=== PATIENT | female | born 1945 | race Caucasian/White ===

== ENCOUNTER 2020-09-07 21:35 | Inpatient (IN) ==
--- OUTSIDE RECORDS SUMMARY | 2020-09-07 21:38 | External Medical Summary | Continuity of Care Document ---
:1945 Author Name Fidencio Rivero, Provider Address Unavailable Unavailable , Care Team Providers Name Role Phone Isabella Craft PA-C Unavailable [email or web address], [email or web address] Unavailable Unavailable Unavailable Unavailable Unavailable Problems Arthritis (716.90) (M19.90) Depression with anxiety (300.4) (F41.8) Allergies and Adverse Reactions Penicillins (Allergy) Reaction: Hives Medications Ibuprofen CAPS Refills: 0 Procedures History of Knee Arthroplasty Status: Com pleted History of hysterectomy Status: Complete d History of kidney surgery Status: Comple nicole Immunizations Immunizations not documented Family History Mother Family history of lymphoma (V16.7) (Z80.7) Status: Active Family history of hypertension (V17.49) (Z82.49) Status: Act joe Family history of leukemia (V16.6) (Z80.6) Status: Active Family history of diabetes mellitus (V18.0) (Z83.3) Status: Active Father Family history of myocardial infarction (V17.3) (Z82.49) Sta tus: Active Brother Family history of malignant neoplasm of esophagus (V16 .0) (Z80.0) Status: Active Social History - Smoking Status Never smoked tobacco Interventions Discussion/SummaryPatient with multiple inflamed SK's on chest. Discussed treating lesions with cryotherapy. Risks of pigmentation change and scar were reviewed and verbal consent obtained. Total of 20 lesions treated. She may return in 4 weeks for additional treatment. Plan of Treatment Planned Observations Planned Goals not documented Results No Known Results Results not documented Encounters Appointment; Isabella Craft PA-C 29-Jun-2018 11:45 Encounter Diagnosis: Problem not documented
[2020-09-07] MEDS ORDERED: ONDANSETRON 4 MG OD TAB PO STA (21:51)
[2020-09-07] MEDS ORDERED: MoRPHine SULFATE 10 MG/ML CARP/VIAL IM STA (21:51)
--- NOTE | 2020-09-07 21:56 | Emergency Department Note ---
History of Present Illness General Chief complaint: Fall Stated complaint: FALL, LOWER BACK PAIN Time Seen by Provider: 09/07/20 21:44 Source: patient Mode of arrival: EMS History of Present Illness Provider complaint: Lower back pain Onset (ago): hour(s) Location: back, left and right Radiation: non-radiation Pain Consistency: + constant Maximum Pain Intensity: 7 Quality: + sharp Exacerbated By: + movement Associated symptoms: no chest pain, no fever/chills, no headaches, no nausea/vomiting, no shortness of breath and no weakness This is a 75-year-old female who presents with low back pain starting at 7:30 PM after falling. The patient was carrying water jugs into the house when she tripped on her rug causing her to pitch forward and landed on a week or so for. The patient states that when she did this she arched her back and thought she heard something snap. She has pain to the lower back bilaterally without radiation down her legs or into her abdomen. She describes it as sharp. It is worse when she moves. She rates it a 7 out of 10 in severity. She denies hitting her head or injuring any other part of her body. She has no headache, neck pain, chest pain, hip pain or extremity pain. She does state that she had knee replacements and so had difficulty getting up and had to call EMS. She denies any recent illness and states that she has had no fever, shortness of breath, cough or cold symptoms, abdominal pain, vomiting, diarrhea or urinary symptoms. She denies numbness or weakness to her legs or any fecal urinary incontinence. She lives at home with her handicapped son. Home Medications Medication Instructions Recorded Confirmed Type IBUPROFEN 1 - 2 cap PO DIRECTED PRN #0 06/02/16 History OMEPRAZOLE (Prilosec) 20 mg PO QAM #0 cap 06/02/16 History Allergies Allergy/AdvReac Type Severity Reaction Status Date / Time Penicillins Allergy Intermediate HIVES Verified 07/30/16 13:29 tramadol Allergy Unknown DIZZY Verified 07/30/16 13:29 Past Med/Surg History Medical History Lumbar disc disease Social History Smoking Status: Never smoker Feels Safe at Home: Yes Review of Systems See HPI for pertinent positives & negatives. and A total of 10 systems reviewed and were otherwise negative Physical Exam Vital Signs Vital Signs - 24 hr 09/07/20 21:43 09/07/20 22:52 Temperature 37.3 C Temperature Source Oral Pulse Rate 73 Pulse Rate [Finger] 70 Respiratory Rate 18 18 Blood Pressure 155/62 H Blood Pressure [Right Arm] 135/66 Blood Pressure Mean 93 Blood Pressure Mean [Right Arm] 89 Pulse Oximetry 94 93 Oxygen Delivery Method Room Air Room Air Sepsis Recent Fever Within 48 Hours No Sepsis New/Unexplained Change in Mental Status N/A Sepsis Action Taken by Nursing No Action Required Constitutional: Vital signs reviewed. Eyes: Pupils are equal round reactive to light. Conjunctiva are noninjected. ENT: Pharynx is clear without erythema or exudate. Mucous membranes are moist. Neck supple without meningeal signs. Respiratory: Clear to auscultation bilaterally. Breath sounds are equal bilater ally. Cardiovascular: Regular rate and rhythm. No rubs or gallops. GI: Soft, nondistended and nontender. Bowel sounds are present. Musculoskeletal: Mild tenderness to the mid lumbar spine without step-off or deformity. No thoracic spine tenderness. No hip tenderness. Distal pulses are intact. Integumentary: No cyanosis. or jaundice. Neurological: The patient is awake and alert. No focal deficits. Motor and sensation are intact throughout the lower extremities. Negative straight leg raise bilaterally. Psychiatric: Normal affect. Not anxious appearing. Course Administered Medications Discontinued Medications Morphine Sulfate (Morphine Sulfate 10 Mg/Ml Carp/Vial) 6 mg IM NOW STA Stop: 09/07/20 21:52 Last Admin: 09/07/20 21:55 Dose: 6 mg Documented by: [id number] Ondansetron HCl (Ondansetron 4 Mg Od Tab) 4 mg PO NOW STA Stop: 09/07/20 21:52 Last Admin: 09/07/20 21:55 Dose: 4 mg Documented by: [id number] Medical Decision Making Differential Diagnosis Strain, compression fracture, spinal stenosis, lumbar disc disease, contusion Medical Records Attestation: I reviewed the patient's medical records. I did perform a limited focused review of portions of the patient's old chart on the electronic medical record. The patient has had no recent pertinent visits to this hospital. Home Medications Current Medication List: was personally reviewed by me Laboratory Data Attestation: I reviewed the patient's lab results. X-ray lumbar spine per my interpretation shows no evidence of fracture or dislocation. She has diffuse disc space narrowing. There is spondylolisthesis of L4 on L5. MDM Narrative I did evaluate the patient as noted above. The patient is presenting with low back pain after a mechanical fall. She is neurovascular intact. I did treat her with IM morphine and ODT Zofran. I did order and personally reviewed the images of the patient's Lumbar spine x-rays as described above. She has diffuse to space narrowing and spondylolisthesis of L4 on L5. I did reassess the patient. I did discuss the test results with the patient. She does feel better and wishes to go home. She was given an ambulatory trial. Unfortunately she wa s unable to stand on her own. She will therefore be hospitalized for further care and evaluation. IV access was established. I did order blood work on her as well. I did order a rapid Covid test. I did discuss case with the hospitalist and telephonic case manager. Impression & Plan Intractable low back pain, Fall, Ambulatory dysfunction Discharge Plan Visit Data Chief Complaint: Fall Stated Complaint: FALL, LOWER BACK PAIN ED Provider: Ramakrishna Clay Discharge Problem: Intractable low back pain, Fall, Ambulatory dysfunction Patient Disposition: Being Evaluated by Hospitalist Forms Stand Alone Forms: My [facility] Prescriptions Prescriptions: No Action IBUPROFEN 200 MG capsule 1 - 2 cap PO DIRECTED PRN (Reason: Pain) Qty: 0 RF: 0 OMEPRAZOLE (Prilosec) 20 MG CONTR REL CAP 20 mg PO QAM Qty: 0 RF: 0 Referrals Referrals: Piper Winkler MD [Primary Care Provider] - Discharge Problem: Fall Qualifiers: Encounter type: initial encounter Qualified Code(s): W19.XXXA - Unspecified fall, initial encounter
[2020-09-07] MEDS ORDERED: NORCO 5/325MG HOMEPACK PO ONE (22:42)
[2020-09-07 23:19] LABS: Hematocrit (blood only) 38.9 % (37-47); Hemoglobin 12.7 g/dL (12.0-16.0); Immature Granulocytes # (auto) 0.01 K/uL (0.00-0.02); Immature Granulocytes % (auto) 0.2 %; Lymphocytes # (auto) 0.84 K/uL (1.2-3.4); Lymphocytes % (auto) 14.4 %; Mean Corpuscular Hemoglobin 28.6 pg (25-34); Mean Corpuscular Hgb Conc 32.6 g/dL (32-36); Mean Corpuscular Volume 87.6 fL (80-100); Monocytes # (auto) 0.31 K/uL (0.11-0.59); Monocytes % (auto) 5.3 %; Neutrophils # (auto) 4.67 K/uL (1.4-6.5); Neutrophils % (auto) 80.1 %; Platelet Count 131 K/uL (130-400); RDW Coefficient of Variation 14.2 % (11.5-14.5); RDW Standard Deviation 45.6 fL (36.4-46.3); Red Blood Count 4.44 M/uL (4.2-5.4); White Blood Count 5.83 K/uL (4.8-10.8)
[2020-09-07 23:37] LABS: BUN Creatinine Ratio 43.4 (10-20); Calcium 8.5 mg/dl (8.5-10.1); Creatinine Clr Calc Pharmacy 81.6 ml/min; Est GFR (African American) 104.6; Est GFR (Non-African American) 90.3; Potassium 3.6 mmol/L (3.5-5.1)
[2020-09-08] MEDS ORDERED: POLYETHYLENE (MIRALAX) 17 GM PACK PO PRN (01:24)
[2020-09-08] MEDS ORDERED: oxyCODONE HCL IR 5 MG TAB (IMMEDIATE RELEASE) PO PRN (01:24)
[2020-09-08] MEDS ORDERED: ACETAMINOPHEN 325 MG TAB PO PRN (01:24)
--- NOTE | 2020-09-08 02:27 | History and Physical Report ---
DATE OF ADMISSION: 09/07/2020 CHIEF COMPLAINT: Back pain. HISTORY OF PRESENT ILLNESS: This is a 75-year-old female with past medical history significant for mild aortic stenosis, GERD, vitamin D deficiency, lumbar spinal stenosis, history of remitting seronegative symmetrical synovitis with pitting edema. Presents with back pain. She was carrying water jugs from the porch when she tripped on the carpet and fell down and arched back and she could not get up. Generally she has knee problems and when she falls she cannot get up, but today was having back pain. She crawled into the house and her daughter advised her to come to the hospital. In the ER, she received a dose of morphine and x-ray was done showing some degenerative disc disease. ER tried to discharge her, but she was feeling dizzy, nauseous and also having severe back pain and advised to stay in the hospital. Preadmission COVID test came back positive. The patient says she is totally asymptomatic except for 2 weeks ago she had 4 days of runny nose that resolved. 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 Denies any fever. No cough, no chest pain, no shortness of breath, no nausea, no vomiting, no abdominal pain, no diarrhea. Normal bowel and bladder movements. No loss of sense of smell or taste. Appetite is good. No headache, no blurred visions, no earache, no runny nose currently. Resting comfortably and hemodynamically stable. ALLERGIES: PENICILLINS, TRAMADOL. PAST MEDICAL HISTORY: As mentioned above. PAST SURGICAL HISTORY: Left knee arthroplasty, , colonoscopy, cystoscopy with stent placement, cystourethroscopy with lithotripsy, dilatation and curettage, hysteroscopy, tonsillectomy, adenoidectomy, total abdominal hysterectomy with removal of tubes. MEDICATIONS: Atorvastatin 20 mg p.o. daily. FAMILY HISTORY: Significant for mother had CLL, diabetes, hypercholesterolemia, hypertension; father had ME at the age of 46 years; brother had esophageal cancer, hypertension. SOCIAL HISTORY: . No smoking, no alcohol, no drug use. REVIEW OF SYSTEMS: As per HPI. Rest of the review of systems negative. PHYSICAL EXAMINATION: GENERAL: The patient is of moderate build, not in acute distress. VITAL SIGNS: Temperature 37.3, pulse 70, respiratory rate 18, blood pressure 135/66, oxygen 93% on room air. HEENT: Pupils equal, round, and reactive to light. Oral mucosa moist. NECK: No neck masses seen. CARDIOVASCULAR: S1, S2 heard. Regular rate and rhythm, no murmur, no gallop. RESPIRATORY SYSTEM: Normal AP diameter. No accessory muscle use. No wheezing, no crackles. ABDOMEN: Soft, bowel sounds present, nontender, no distention. CENTRAL NERVOUS SYSTEM: Cranial nerves II-XII grossly intact, nonfocal. EXTREMITIES: No edema, no erythema seen. MUSCULOSKELETAL: Left lower extremity straight leg test is positive. LABORATORY DATA: WBC at 5.8, hemoglobin 12.7, hematocrit 38.9, platelets 131. Sodium 143, potassium 3.6, chloride 109, bicarbonate 28, BUN 26, creatinine 0.5, serum glucose 129, calcium 8.5. SARS-CoV-2 antigen positive. SARS-CoV-2 RNA positive. IMAGING DATA: Lumbar spine x-ray, results pending. ASSESSMENT AND PLAN: A 75-year-old female who presents with fall and back pain. 1. Back pain status post mechanical fall. Lumbar x-ray showed some degenerative disease, we will follow the final report. Not able to ambulate in the ER because of pain. We will admit to medical floor. PT and OT, pain control. If the pain is not getting better, would consider MRI scan. Monitor in the medical floor. 2. COVID-19 positive. No obvious exposure. Currently asymptomatic. We will follow the chest x-ray. Hemodynamically stable. 3. Hyperlipidemia: Continue statin. 4. Deep venous thrombosis prophylaxis: Lovenox. DISPOSITION: Closely monitor in the medical floor. PT/OT prior to discharge. Social service to help with discharge planning. Level 1 full code. MTDD
[2020-09-08] MEDS: HYDROmorphone INJ 0.5 MG/0.5 ML SYR IV PRN ×3 (03:11→11:02)
[2020-09-08] MEDS: ONDANSETRON INJ 2 MG/ML 2 ML VIAL IV PRN ×4 (03:11→23:44)
[2020-09-08 05:55] LABS: Basophils # (auto) 0.01 K/uL (0-0.2); Basophils % (auto) 0.2 %; Hematocrit (blood only) 38.2 % (37-47); Hemoglobin 12.4 g/dL (12.0-16.0); Immature Granulocytes # (auto) 0.01 K/uL (0.00-0.02); Immature Granulocytes % (auto) 0.2 %; Lymphocytes # (auto) 1.05 K/uL (1.2-3.4); Lymphocytes % (auto) 20.5 %; Mean Corpuscular Hemoglobin 28.4 pg (25-34); Mean Corpuscular Hgb Conc 32.5 g/dL (32-36); Mean Corpuscular Volume 87.4 fL (80-100); Mean Platelet Volume 12.4 fL (7.4-10.4); Monocytes % (auto) 11.7 %; Neutrophils # (auto) 3.46 K/uL (1.4-6.5); Neutrophils % (auto) 67.4 %; Platelet Count 156 K/uL (130-400); RDW Coefficient of Variation 14.3 % (11.5-14.5); RDW Standard Deviation 46.1 fL (36.4-46.3); Red Blood Count 4.37 M/uL (4.2-5.4); White Blood Count 5.13 K/uL (4.8-10.8)
[2020-09-08 06:13] LABS: BUN Creatinine Ratio 41.9 (10-20); Blood Urea Nitrogen 22 mg/dl (7-18); Calcium 8.4 mg/dl (8.5-10.1); Carbon Dioxide 30 mmol/L (21-32); Chloride 108 mmol/L (98-107); Creatinine Clr Calc Pharmacy 92.6 ml/min; Est GFR (African American) 109.1; Est GFR (Non-African American) 94.1; Glucose 119 mg/dl (70-99); Magnesium 2.2 mg/dl (1.8-2.4); Potassium 3.9 mmol/L (3.5-5.1); Sodium 140 mmol/L (136-145)
[2020-09-08 06:18] LABS: Ferritin 178.6 ng/ml (8-388); Troponin I < 0.015 ng/ml (0-0.045)
[2020-09-08 06:37] LABS: D Dimer 2410 ug/L FEU (0-500)
--- NOTE | 2020-09-08 07:29 | XRay Report ---
XR lumbar spine 2-3V CLINICAL HISTORY: Back pain status post trauma COMPARISON STUDY: No previous studies for comparison. FINDINGS: There are moderately advanced multilevel degenerative changes present. There is a grade 1 s lis listhesis of L4 and L5. No acute fractures are visualized. There are prominent posterior osteop hytes at the L3-4 level. IMPRESSION: Moderately advanced multilevel degenerative change. No acute fractures identified ACT 112: Negative or not required by law. Electronically signed by: Jordan Guillaume M.D. 09/08/2020 7:28 AM
--- NOTE | 2020-09-08 08:34 | XRay Report ---
XR chest 1V portable CLINICAL HISTORY: Covid 19 positive patient. Shortness of breath. COMPARISON STUDY: 12-0 9 FINDINGS: The heart is normal in size. There is no failure. There is subtle interstitial thickening a t the left lung base. This can be atelectatic or infectious/inflammatory. There is no lobar consolida tion. There are no significant pleural effusions. IMPRESSION: 1. Slight interstitial thickening at the left lung base. This could be atelectatic or infectious/infl ammatory. No evidence of lobar consolidation. ACT 112: Negative or not required by law. Electronically signed by: Jordan Guillaume M.D. 09/08/2020 8:33 AM
[2020-09-08] MEDS: ENOXAPARIN INJ 40 MG/0.4 ML SYR SQ SCH (09:20)
[2020-09-08] MEDS: ATORVASTATIN 20 MG TAB PO SCH (09:21)
--- NOTE | 2020-09-08 09:59 | Hospitalist Progress Note ---
Date of Service September 08, 2020 Assessment & Plan (1) Fall: (2) Ambulatory dysfunction: (3) Intractable low back pain: (4) Lumbar disc disease: Mechanical fall with intractable low back pain XR did not show fractures Pelvis CT and lumbar spine CT show moderately advanced multilevel degenerative joint disease of the lumbar spine with stenosis at L4-5 without acute fractures or subluxation Pain control. Scheduled Tylenol. Oxycodone and Dilaudid as needed moderate and severe pain We will get PT OT (5) COVID-19: No respiratory symptoms No significant findings on review of x-ray Wean off oxygen No Covid specific therapies at this time (6) Dyslipidemia: Continue statins (7) DVT prophylaxis: Lovenox subcu Admission and Anticipated Discharge Date Admission Date: September 07, 2020 Subjective Patient seen and examined. Complains only of severe low back pain limiting sitting up. Denied cough, chest pain, shortness of breath denies headache, dizziness denies fever, chills, nausea vomiting denies dysuria, frequency, urgency Patient on nasal oxygen. Per RN, patient desaturated to high 80s after she got some meds earlier in ER. Review of Systems Review of Systems: All systems reviewed & are unremarkable except as noted in Subjective Physical Exam Constitutional: well nourished and + well hydrated; no acute distress Eyes: PERRL, conjunctivae normal, anicteric sclerae ENMT: external ear and nose normal, oropharynx normal Respiratory: normal respiratory effort, lungs clear to auscultation Cardiovascular: Rate/Rhythm: regular rate and regular rhythm S1-S2 Gastrointestinal (Abdomen): normal bowel sounds, soft, nontender, no hepatosplenomegaly Musculoskeletal: Patient could not even sit up for me to assess back. Power is 5/5 in both lower extremities but reports mild back pain with active ROM of left leg Neurologic: PERRL, EOMI, accommodation nl, no face palsy, no dysarthria Psychiatric: A+Ox3, euthymic affect Results & Data Results & Data ([facility]) Vital Signs (Past 12 Hours) Vital Signs Temp Pulse Resp BP Pulse Ox 09/08/20 07:56 36.9 C 67 18 144/65 H 98 09/08/20 00:50 73 18 151/65 H 93 09/07/20 22:52 70 18 135/66 93 Laboratory Results Laboratory Results - last 24 hr 09/07/20 09/07/2009/07/20 23:03 23:03 23:17 WBC 5.83 RBC 4.44 Hgb 12.7 Hct 38.9 MCV 87.6 MCH 28.6 MCHC 32.6 RDW Std Deviation 45.6 RDW Coeff of Cuau[place]emoc 14.2 Plt Count 131 MPV 12.0 H Immature Gran % (Auto) 0.2 Neut % (Auto) 80.1 Lymph % (Auto) 14.4 [place] % (Auto) 5.3 Eos % (Auto) 0.0 Baso % (Auto) 0.0 Neut # (Auto) 4.67 Lymph # (Auto) 0.84 L [place] # (Auto) 0.31 Eos # (Auto) 0.00 Baso # (Auto) 0.00 Immature Gran # (Auto) 0.01 PT INR D-Dimer Sodium 143 Potassium 3.6 Chloride 109 H Carbon Dioxide 28 Anion Gap 6.0 BUN 26 H Creatinine 0.59 L Est Cr Clr Drug Dosing 81.6 Est GFR ( Amer) 104.6 Est GFR (Non-Af Amer) 90.3 BUN/Creatinine Ratio 43.4 H Glucose 129 H Calcium 8.5 Magnesium Ferritin Troponin I SARS-CoV-2, RNA, NAAT SARS-CoV-2 Ag (Rapid) Positive A* 09/07/20 09/08/20 09/08/20 23:20 05:42 05:42 WBC 5.13 RBC 4.37 Hgb 12.4 Hct 38.2 MCV 87.4 MCH 28.4 MCHC 32.5 RDW Std Deviation 46.1 RDW Coeff of Cu[place]em[place] 14.3 Plt Count 156 MPV 12.4 H Immature Gran % (Auto) 0.2 Neut % (Auto) 67.4 Lymph % (Auto) 20.5 [place] % (Auto) 11.7 Eos % (Auto) 0.0 Baso % (Auto) 0.2 Neut # (Auto) 3.46 Lymph # (Auto) 1.05 L [place] # (Auto) 0.60 H Eos # (Auto) 0.00 Baso # (Auto) 0.01 Immature Gran # (Auto) 0.01 PT INR D-Dimer Sodium 140 Potassium 3.9 Chloride 108 H Carbon Dioxide 30 Anion Gap 2.0 L BUN 22 H Creatinine 0.52 L Est Cr Clr Drug Dosing 92.6 Est GFR ( Amer) 109.1 Est GFR (Non-Af Amer) 94.1 BUN/Creatinine Ratio 41.9 H Glucose 119 H Calcium 8.4 L Magnesium 2.2 Ferritin 178.6 Troponin I < 0.015 SARS-CoV-2, RNA, NAAT POSITIVE A* SARS-CoV-2 Ag (Rapid) 09/08/20 05:42 WBC RBC Hgb Hct MCV MCH MCHC RDW Std Deviation RDW Coeff of Cu[place]em[place] Plt Count MPV Immature Gran % (Auto) Neut % (Auto) Lymph % (Auto) [place] % (Auto) Eos % (Auto) Baso % (Auto) Neut # (Auto) Lymph # (Auto) [place] # (Auto) Eos # (Auto) Baso # (Auto) Immature Gran # (Auto) PT 11.0 INR 1.0 D-Dimer 2410 H* Sodium Potassium Chloride Carbon Dioxide Anion Gap BUN Creatinine Est Cr Clr Drug Dosing Est GFR ( Amer) Est GFR (Non-Af Amer) BUN/Creatinine Ratio Glucose Calcium Magnesium Ferritin Troponin I SARS-CoV-2, RNA, NAAT SARS-CoV-2 Ag (Rapid) (1) Fall Encounter type: initial encounter Qualified Code(s): W19.XXXA - Unspecified fall, initial encounter
--- NOTE | 2020-09-08 11:24 | CT Scan Report ---
CT lumbar spine wo con CT DOSE: CLINICAL HISTORY: Severe low back pain status post trauma. TECHNIQUE: Helical images were acquired in transverse plane. Reformatted sagittal and coronal images were reviewed. A dose lowering technique was utilized adhering to the principles of ALARA. CONTRAST: No contrast was administered COMPARISON STUDY: None. FINDINGS: L1-2 level: There is a posterior disc osteophyte complex with mild to moderate spinal canal narrowing . L2-3 level: There is a circumferential disc bulge with mild to moderate spinal canal narrowing L3-4 level: There is a disc osteophyte complex with moderate spinal canal narrowing L4-5 level: There is a grade 1 spondylolisthesis of L4 and L5. There is severe spinal stenosis. There is facet joint arthropathy. L5-S1 level: There is no SI joint diastases. No acute fractures or traumatic subluxations are visualized. IMPRESSION: 1. Moderately advanced multilevel degenerative change with multilevel spinal stenosis which is severe at the L4-5 level 2. No acute fractures or traumatic subluxations identified ACT 112: Negative or not required by law. Electronically signed by: Jordan Guillaume M.D. 09/08/2020 11:23 AM
--- NOTE | 2020-09-08 11:26 | CT Scan Report ---
CT pelvis wo con CT DOSE: 1230.61 mGycm CLINICAL HISTORY: Severe back pain status post trauma TECHNIQUE: Helical images were acquired in the transverse plane. Sagittal coronal reformatted images were acquired. A dose lowering technique was utilized adhering to the principles of ALARA. COMPARISON STUDY: None. FINDINGS: There are degenerative changes present within the lumbar spine. There is severe L4-5 spinal stenosis. There is colonic diverticulosis. There is no evidence of acute diverticulitis. There is no SI joint diastases. There is no symphysis diastases. No acute fractures are visualized. IMPRESSION: 1. No acute fractures 2. Degenerative changes the lower lumbar spine with severe L4-5 spinal stenosis ACT 112: Negative or not required by law. Electronically signed by: Jordan Guillaume M.D. 09/08/2020 11:25 AM
--- NOTE | 2020-09-08 13:07 | Electrocardiogram Report ---
Test Reason : Blood Pressure : / mmHG Vent. Rate : 067 BPM Atrial Rate : 067 BPM P-R Int : 178 ms QRS Dur : 100 ms QT Int : 396 ms P-R-T Axes : 065 014 045 degrees QTc Int : 418 ms Normal sinus rhythm Incomplete right bundle branch block Borderline ECG When compared with ECG of 11-SEP-2010 13:57, No significant change was found Confirmed by Mookie Christine ([id number]) on 09/08/2020 1:07:36 PM Referred By: REFERRED SELF Confirmed By:Mookie Christine
[2020-09-08] MEDS ORDERED: HYDROmorphone INJ 0.5 MG/0.5 ML SYR IV PRN (13:28)
[2020-09-08] MEDS: ACETAMINOPHEN 325 MG TAB PO SCH ×2 (14:03→20:59)
[2020-09-08] MEDS ORDERED: CYCLOBENZAPRINE HCL 10 MG TAB PO STA ×2 (16:29→18:46)
[2020-09-08] MEDS: oxyCODONE HCL IR 5 MG TAB (IMMEDIATE RELEASE) PO PRN (16:54)
[2020-09-09] MEDS: ACETAMINOPHEN 325 MG TAB PO SCH ×4 (02:31→19:13)
[2020-09-09] MEDS: ATORVASTATIN 20 MG TAB PO SCH (08:22)
[2020-09-09] MEDS: ENOXAPARIN INJ 40 MG/0.4 ML SYR SQ SCH (08:22)
[2020-09-09] MEDS: oxyCODONE HCL IR 5 MG TAB (IMMEDIATE RELEASE) PO PRN (08:23)
[2020-09-09 09:12] LABS: Hematocrit (blood only) 40.1 % (37-47); Hemoglobin 13.1 g/dL (12.0-16.0); Mean Corpuscular Hemoglobin 28.7 pg (25-34); Mean Corpuscular Hgb Conc 32.7 g/dL (32-36); Mean Corpuscular Volume 87.9 fL (80-100); Mean Platelet Volume 12.9 fL (7.4-10.4); Platelet Count 140 K/uL (130-400); RDW Coefficient of Variation 14.4 % (11.5-14.5); RDW Standard Deviation 46.4 fL (36.4-46.3); Red Blood Count 4.56 M/uL (4.2-5.4); White Blood Count 4.71 K/uL (4.8-10.8)
[2020-09-09 09:46] LABS: BUN Creatinine Ratio 45.4 (10-20); Creatinine Clr Calc Pharmacy 89.2 ml/min; Est GFR (African American) 107.7; Potassium 3.2 mmol/L (3.5-5.1)
[2020-09-09 09:52] LABS: D Dimer 1040 ug/L FEU (0-500)
[2020-09-09] MEDS ORDERED: POTASSIUM CHLORIDE 20 MEQ/15 ML UDC PO STA (10:42)
[2020-09-09] MEDS ORDERED: KETOROLAC TROMETHAMINE 15 MG/ML VIAL IV ONE (15:00)
--- NOTE | 2020-09-09 15:00 | Hospitalist Progress Note ---
Date of Service September 09, 2020 Assessment & Plan (1) Fall: (2) Ambulatory dysfunction: (3) Intractable low back pain: (4) Lumbar disc disease: Mechanical fall with intractable low back pain XR did not show fractures Pelvis CT and lumbar spine CT show moderately advanced multilevel degenerative joint disease of the lumbar spine with stenosis at L4-5 without acute fractures or subluxation Do not expect need for surgical intervention at this time. Will appreciate ortho input considering CT findings and severity of pain Optimize pain control Scheduled tylenol Continue prn oxycodone. Patient would like to minimize opioids if possible Will do ketorolac for the next 1-2 days PT/OT (5) COVID-19: No respiratory symptoms No significant findings on review of x-ray Wean off oxygen No Covid specific therapies at this time (6) Dyslipidemia: Continue statins (7) DVT prophylaxis: Lovenox subcu Admission and Anticipated Discharge Date Admission Date: September 07, 2020 Subjective Patient seen and examined Still reports profound low back pain though she stated this has improved compared to yesterday Denied any weakness. States activity is limited by pain Denied any cough, chest pain, SOB, fevers, chills, nausea, vomiting, diarrhea, headache, dizziness Review of Systems Review of Systems: All systems reviewed & are unremarkable except as noted in Subjective Physical Exam Constitutional: well nourished and + well hydrated; no acute distress Eyes: PERRL, conjunctivae normal, anicteric sclerae ENMT: external ear and nose normal, oropharynx normal Respiratory: normal respiratory effort, lungs clear to auscultation Cardiovascular: Rate/Rhythm: regular rate and regular rhythm Gastrointestinal (Abdomen): normal bowel sounds, soft, nontender, no hepatosplenomegaly Musculoskeletal: Patient was able to roll to the right side for me to examine her back Able to raise legs off the bed against resistant but stated she has back pain with that Neurologic: PERRL, EOMI, accommodation nl, no face palsy, no dysarthria No sensory deficits noted on lower extremities Psychiatric: A+Ox3, euthymic affect Results & Data Results & Data ([facility]) Vital Signs (Past 12 Hours) Vital Signs Temp Pulse Resp BP Pulse Ox Pulse Ox Pulse Ox 09/09/20 12:06 90 90 09/09/20 07:57 36.8 C 64 16 128/81 90 Pulse Ox 09/09/20 12:06 96 09/09/20 07:57 Laboratory Results Laboratory Results - last 24 hr 09/09/20 09/09/20 09/09/20 08:34 08:34 08:34 WBC 4.71 L RBC 4.56 Hgb 13.1 Hct 40.1 MCV 87.9 MCH 28.7 MCHC 32.7 RDW Std Deviation 46.4 H RDW Coeff of Cuauhtemoc 14.4 Plt Count 140 MPV 12.9 H D-Dimer 1040 H* Sodium 142 Potassium 3.2 L D Chloride 106 Carbon Dioxide 29 Anion Gap 7.0 BUN 25 H Creatinine 0.54 L Est Cr Clr Drug Dosing 89.2 Est GFR ( Amer) 107.7 Est GFR (Non-Af Amer) 93.0 BUN/Creatinine Ratio 45.4 H Glucose 80 Calcium 9.0 (1) Fall Encounter type: initial encounter Qualified Code(s): W19.XXXA - Unspecified fall, initial encounter
[2020-09-09] MEDS: KETOROLAC TROMETHAMINE 15 MG/ML VIAL IV SCH (23:16)
[2020-09-10] MEDS: ACETAMINOPHEN 325 MG TAB PO SCH ×3 (02:11→14:01)
[2020-09-10] MEDS: KETOROLAC TROMETHAMINE 15 MG/ML VIAL IV SCH ×2 (05:41→12:19)
[2020-09-10 08:15] VITALS: BP 148/71; PULSE 63; TEMP 98.2; O2SAT 92
[2020-09-10] MEDS: ENOXAPARIN INJ 40 MG/0.4 ML SYR SQ SCH (08:19)
[2020-09-10 08:20] LABS: Mean Corpuscular Hgb Conc 32.1 g/dL (32-36)
[2020-09-10] MEDS: ATORVASTATIN 20 MG TAB PO SCH (08:20)
[2020-09-10 08:42] LABS: Hematocrit (blood only) 41.1 % (37-47); Hemoglobin 13.2 g/dL (12.0-16.0); Mean Corpuscular Hemoglobin 28.4 pg (25-34); Mean Corpuscular Volume 88.4 fL (80-100); Mean Platelet Volume 13.5 fL (7.4-10.4); Platelet Count 134 K/uL (130-400); Platelet Estimate Decreased (Normal); RDW Coefficient of Variation 14.4 % (11.5-14.5); RDW Standard Deviation 46.4 fL (36.4-46.3); Red Blood Count 4.65 M/uL (4.2-5.4); White Blood Count 3.32 K/uL (4.8-10.8)
[2020-09-10 08:47] LABS: BUN Creatinine Ratio 61.4 (10-20); Calcium 8.6 mg/dl (8.5-10.1); Creatinine Clr Calc Pharmacy 89.2 ml/min; Est GFR (African American) 107.7; Magnesium 2.2 mg/dl (1.8-2.4); Potassium 3.5 mmol/L (3.5-5.1)
[2020-09-10] MEDS ORDERED: POLYETHYLENE (MIRALAX) 17 GM PACK PO SCH (09:00)
--- NOTE | 2020-09-10 13:07 | Discharge Summary ---
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 Presents with back pain. She was carrying water jugs from the porch when she tripped on the carpet and fell down and arched back and she could not get up. Generally she has knee problems and when she falls she cannot get up, but today was having back pain. She crawled into the house and her daughter advised her to come to the hospital. In the ER, she received a dose of morphine and x-ray was done showing some degenerative disc disease. ER tried to discharge her, but she was feeling dizzy, nauseous and also having severe back pain and advised to stay in the hospital. Preadmission COVID test came back positive. The patient says she is totally asymptomatic except for 2 weeks ago she had 4 days of runny nose that resolved. 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 Denies any fever. No cough, no chest pain, no shortness of breath, no nausea, no vomiting, no abdominal pain, no diarrhea. Normal bowel and bladder movements. No loss of sense of smell or taste. Appetite is good. No headache, no blurred visions, no earache, no runny nose currently. Resting comfortably and hemodynamically stable. Admission Exam Per Admitting Provider GENERAL: The patient is of moderate build, not in acute distress. VITAL SIGNS: Temperature 37.3, pulse 70, respiratory rate 18, blood pressure 135/66, oxygen 93% on room air. HEENT: Pupils equal, round, and reactive to light. Oral mucosa moist. NECK: No neck masses seen. CARDIOVASCULAR: S1, S2 heard. Regular rate and rhythm, no murmur, no gallop. RESPIRATORY SYSTEM: Normal AP diameter. No accessory muscle use. No wheezing, no crackles. ABDOMEN: Soft, bowel sounds present, nontender, no distention. CENTRAL NERVOUS SYSTEM: Cranial nerves II-XII grossly intact, nonfocal. EXTREMITIES: No edema, no erythema seen. MUSCULOSKELETAL: Left lower extremity straight leg test is positive. Principal Diagnosis Mechanical fall Back pain COVID-19 infection Discharge Exam Constitutional well nourished and + well hydrated; no acute distress Eyes PERRL, conjunctivae normal, anicteric sclerae ENMT external ear and nose normal, oropharynx normal Respiratory normal respiratory effort, lungs clear to auscultation Cardiovascular Rate/Rhythm: regular rate and regular rhythm S1 and S2 no pedal edema Gastrointestinal (Abdomen) normal bowel sounds, soft, nontender, no hepatosplenomegaly Musculoskeletal no cyanosis or clubbing, extremities motor strength 5/5 Power is normal in all extremities No sensory deficits Able to ambulate without aid No tenderness on palpation of the spine Neurologic PERRL, EOMI, accommodation nl, no face palsy, no dysarthria Psychiatric A+Ox3, euthymic affect Discharge Data Allergies Allergy/AdvReac Type Severity Reaction Status Date / Time Penicillins Allergy Intermediate HIVES Verified 09/07/20 23:15 tramadol Allergy Unknown DIZZY Verified 09/07/20 23:15 Consultations 09/07/20 22:55 ED Decision to Admit Stat 09/08/20 01:24 Consult Case Management - Discharge Planning Routine 09/09/20 14:56 Consult Orthopedic Surgery Routine Ordered Studies 09/08/20 09:58 CT lumbar spine wo con Stat L1-2 level: There is a posterior disc osteophyte complex with mild to moderate spinal canal narrowing. L2-3 level: There is a circumferential disc bulge with mild to moderate spinal canal narrowing L3-4 level: There is a disc osteophyte complex with moderate spinal canal narrowing L4-5 level: There is a grade 1 spondylolisthesis of L4 and L5. There is severe spinal stenosis. There is facet joint arthropathy. L5-S1 level: There is no SI joint diastases. No acute fractures or traumatic subluxations are visualized. IMPRESSION: 1. Moderately advanced multilevel degenerative change with multilevel spinal stenosis which is severe at the L4-5 level 2. No acute fractures or traumatic subluxations identified CT pelvis wo con Stat There are degenerative changes present within the lumbar spine. There is severe L4-5 spinal stenosis. There is colonic diverticulosis. There is no evidence of acute diverticulitis. There is no SI joint diastases. There is no symphysis diastases. No acute fractures are visualized. IMPRESSION: 1. No acute fractures 2. Degenerative changes the lower lumbar spine with severe L4-5 spinal stenosis Hospital Course (1) Fall: (2) Ambulatory dysfunction: (3) Intractable low back pain: (4) Lumbar disc disease: Mechanical fall with intractable low back pain XR did not show fractures Pelvis CT and lumbar spine CT show moderately advanced multilevel degenerative joint disease of the lumbar spine with stenosis at L4-5 without acute fractures or subluxation Pain was controlled with Tylenol and ketorolac Continue Tylenol at home for mild pain and ketorolac for more severe pain Discharged on a few doses of ketorolac Was evaluated by PT OT visual merchandising manager arranged home health and home PT (5) COVID-19: No respiratory symptoms No significant findings on review of x-ray No Covid specific therapies at this time Educated on home isolation precautions (6) Dyslipidemia: Continue statins Total Time Total Time Spent Total Time Spent (In Minutes): 35 Total Time Includes: Examination of the Patient, Discharge Planning and Medication Reconciliation Discharge Plan Discharge Items Patient Disposition: Home - Home Health Services Reason For Visit: BACK PAIN Non-emergency contact: Primary Care Provider Call non-emergency contact if: you have any medication questions Follow-up/Referrals: Piper Winkler MD [Primary Care Provider] - Allan Cervantes DO [Outside Practitioners] - (Date & Time 09/17/2020 12:00 PM Provider Allan Cervantes Jr., DO Department [facility] PLEASE NOTE THAT THIS IS A TELEPHONE APPOINTMENT. YOUR PROVIDER WILL CALL YOU AT THE SCHEDULED TIME. IF YOU HAVE ANY QUESTIONS, PLEASE CALL ) Diet: Heart Healthy Addtl Attending Provider Instructions: Mrs Fountain. You came to the hospital for severe back pain after you fell. You were evaluated. You did not have a fracture but does have degenerative joint disease in the spine. Your pain was controlled. You were also found to have COVID 19 but not having any symptoms, hence no treatment for now. Please adhere to the home isolation instructions as we discussed. Please use tylenol as needed for mild pain and toradol only for more severe pain. Please follow up with your primary doctor. It was a pleasure taking care of you. Home Isolation COVID-19 Instructions The following information about Home Isolation is from the CDC Website: https://www.cdc.gov/coronavirus/2019-ncov/hcp/rflshzkq-dndzxrw-ksfhxu.html Stay home except to get medical care People who are mildly ill with COVID-19 are able to isolate at home during their illness. You should restrict activities outside your home, except for getting medical care. Do not go to work, school, or public areas. Avoid using public transportation, ride-sharing, or taxis. Separate yourself from other people and animals in your home People: As much as possible, you should stay in a specific room and away from other people in your home. Also, you should use a separate bathroom, if available. Animals: You should restrict contact with pets and other animals while you are sick with COVID-19, just like you would around other people. Although there have not been reports of pets or other animals becoming sick with COVID-19, it is still recommended that people sick with COVID-19 limit contact with animals until more information is known about the virus. When possible, have another member of your household care for your animals while you are sick. If you are sick with COVID-19, avoid contact with your pet, including petting, snuggling, being kissed or licked, and sharing food. If you must care for your pet or be around animals while you are sick, wash your hands before and after you interact with pets and wear a face mask. Call ahead before visiting your doctor If you have a medical appointment, call the healthcare provider and tell them that you have or may have COVID-19. This will help the healthcare providers office take steps to keep other people from getting infected or exposed. Wear a face mask You should wear a face mask when you are around other people (e.g., sharing a room or vehicle) or pets and before you enter a healthcare providers office. If you are not able to wear a face mask (for example, because it causes trouble breathing), then people who live with you should not stay in the same room with you, or they should wear a face mask if they enter your room. Cover your coughs and sneezes Cover your mouth and nose with a tissue when you cough or sneeze. Throw used tissues in a lined trash can. Immediately wash your hands with soap and water for at least 20 seconds or, if soap and water are not available, clean your hands with an alcohol-based hand rehabilitation supervisor that contains at least 60% alcohol. Clean your hands often Wash your hands often with soap and water for at least 20 seconds, especially after blowing your nose, coughing, or sneezing; going to the bathroom; and before eating or preparing food. If soap and water are not readily available, use an alcohol-based hand rehabilitation supervisor with at least 60% alcohol, covering all surfaces of your hands and rubbing them together until they feel dry. Soap and water are the best option if hands are visibly dirty. Avoid touching your eyes, nose, and mouth with unwashed hands. Avoid sharing personal household items You should not share dishes, drinking glasses, cups, eating utensils, towels, or bedding with other people or pets in your home. After using these items, they should be washed thoroughly with soap and water. Clean all high-touch surfaces everyday High touch surfaces include counters, tabletops, doorknobs, bathroom fixtures, toilets, phones, keyboards, tablets, and bedside tables. Also, clean any surfaces that may have blood, stool, or body fluids on them. Use a household cleaning spray or wipe, according to the label instructions. Labels contain instructions for safe and effective use of the cleaning product including precautions you should take when applying the product, such as wearing gloves and making sure you have good ventilation during use of the product. Monitor your symptoms Seek prompt medical attention if your illness is worsening (e.g., difficulty breathing).Beforeseeking care, call your healthcare provider and tell them that you have, or are being evaluated for, COVID-19. Put on a face mask before you enter the facility. These steps will help the healthcare providers office to keep other people in the office or waiting room from getting infected or exposed. Ask your healthcare provider to call the local or state health department. Persons who are placed under active monitoring or facilitated self- monitoring should follow instructions provided by their local health department or occupational health professionals, as appropriate. When working with your local health department check their available hours. If you have a medical emergency and need to call 911, notify the dispatch personnel that you have, or are being evaluated for COVID-19. If possible, put on a face mask before emergency medical services arrive. Discontinuing home isolation Patients with confirmed COVID-19 should remain under home isolation precautions until the risk of secondary transmission to others is thought to be low. The decision to discontinue home isolation precautions should be made on a [id number] basis, in consultation with healthcare providers and state and local health departments. Stand-Alone Forms: [facility], Smoking Cessation Medications and DC Order Prescriptions: New acetaminophen 325 mg Tablet 650 mg PO Q6H PRN (Reason: pain) Qty: 60 RF: 0 ketorolac 10 mg tablet 10 mg PO QID PRN (Reason: pain, severe) 3 Days Qty: 12 RF: 0 Continued atorvastatin 20 mg tablet 20 mg PO DAILY RF: 0 Discharge Orders: Discharge Order (Routine); Ordered 09/10/20 Ordered By: Crystal Cortes Admission Data Admit Date/Time: 09/07/20 23:44 Attending Provider: Crystal Cortes I. Admit Provider: Zoran Ritter Primary Care Provider: Piper Winkler Other Providers: Zoran Ritter ; Joni Nieto ; [facility],Home Healthcare Other Interventions: Discharge Summary Assessment (RN) Last Done: 09/10/20 13:37
== END 2020-09-10 16:08 | disposition home health service (06) | DRG 551 ==
LOC: ED 21:35 → EDINP 23:44 → 3E 09-08 15:50

== ENCOUNTER 2023-05-18 08:20 | Inpatient (IN) ==
--- NOTE | 2023-04-29 12:05 | PAT Medication Instructions ---
Medication Instructions Date of Service April 29, 2023 Home Medications Medication Instructions Recorded acetaminophen 325 mg tablet 650 mg PO Q6H PRN pain #60 tabs 09/10/20 atorvastatin 20 mg tablet 20 mg PO DAILY acetaminophen 325 mg tablet 650 mg PO Q6H PRN aspirin 81 mg tablet,delayed release 81 mg PO HS naproxen sodium 220 mg capsule 220 mg PO HS omeprazole 20 mg tablet,delayed release 20 mg PO DAILY PRN Continue as directed atorvastatin 20 mg tablet 20 mg PO DAILY omeprazole 20 mg tablet,delayed release 20 mg PO DAILY PRN(if needed) acetaminophen 325 mg tablet 650 mg PO Q6H PRN(if needed) ASK your surgeon for instructions naproxen sodium 220 mg capsule 220 mg PO HS ASK your prescriber and surgeon aspirin 81 mg tablet,delayed release 81 mg PO HS Other Notes NOTHING TO EAT OR DRINK AFTER MIDNIGHT. If you have any questions please call us at [phone] or [phone] or [phone] or [phone]
--- NOTE | 2023-05-04 11:26 | Anesthesiology Consultation ---
Date of Service May 04, 2023 Assessment & Plan (1) Encounter for pre-operative examination: Chart Review Chart Review: Acceptable Risk for Surgery (pending PCP clearance 05/13/23 and updated ECHO ) and Patient seen in Pre Admission Testing - Awaiting PCP clearance 05/13/23 ([facility]) - Discussed hx of murmur and most recent ECHO being [address] Coffey- recommends updated ECHO prior to surgery- phone message in [facility]- awaiting response (pt aware) Per PAT appt on 05/04/23, no recent Covid exposures, Covid related symptoms, or recent Covid positive tests. Will leave to surgeon's discretion if preop Covid testing needed Teaching & Discussion Pre-Anesthesia Teaching/Discussion Notes: Instructed NPO after midnight before surgery,except medications with 15 cc of water. Medication instructions provided according to the PAT guidelines. History Surgery Operation Date: 05/18/23 07:45 Proposed Procedures p L4-L5 Decompression and Fusion, Spinal Cord Monitoring - Joni Nieto, Height/Weight Height: 5 ft Weight: 87.4 kg Allergies Allergy/AdvReac Type Severity Reaction Status Date / Time Penicillins Allergy Intermediate HIVES Verified 04/26/23 15:27 tramadol Allergy Unknown DIZZY Verified 04/26/23 15:27 Medications Home Medications Medication Instructions Recorded Confirmed Last Taken acetaminophen 325 mg tablet 650 mg PO Q6H PRN pain #60 tabs 09/10/20 04/26/23 Unknown aspirin 81 mg tablet,delayed 81 mg PO HS 04/26/23 04/26/23 Unknown release naproxen sodium 220 mg capsule 220 mg PO HS 04/26/23 04/26/23 Unknown omeprazole 20 mg tablet,delayed 20 mg PO DAILY PRN Acid Reflux 04/26/23 04/26/23 Unknown release Past Medical History Medical History (Updated 05/05/23 @ 11:38 by Lolita Bates PA-C) Cardiac murmur "slight" per patient/chronic- most recent ECHO 2017 (mild to moderate sclerosis- no aortic valve stenosis) COVID-19 08/2020 > was hospitalized but due to a fall that happened, not covid, never had covid symptoms Degenerative disc disease Dyslipidemia Diet controlled GERD (gastroesophageal reflux disease) Controlled and stable Kidney stones hx- no recent issues Osteoarthritis 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) Followed with rheum in the past- stable - follows only with PCP Exercise / Class Metabolic Activity II 4-5 Yardwork/Stairs/Walk up hill (no chest pain or SOB with one flight of stairs ) Past Surgical History Surgical History History of appendectomy History of section x3 History of colonoscopy History of cystoscopy History of hysterectomy History of tonsillectomy History of total knee replacement bilat [place] teeth extracted Past Anesthesia History No Hx of Anesthesia Complications and No Family Hx of Anesthesia Complications History of PONV No Hx of Motion Sickness and History of PONV Social History Smoking Status: Never smoker Do You Dip or Chew Tobacco: No Hx Alcohol Use: No Hx Substance Use: No substance use type: does not use Review of Systems Snoring- unknown - sleeps alone Patient denies chest pain, shortness of breath, dyspnea on exertion, cough, wheezing, palpitations. No hx of seizures, stroke, NM. No hx of blood clots or blood transfusions Physical Exam Vital Signs VITALS BP 141/79 P 69 TEMP 98.3 SP02 95% RESP 16 Constitutional no acute distress ENMT Mouth: no TMJ clicking Thyromental Distance: > or= 3.5 Finger Breadths (3.5) Mallampati Class: I [place] to molar Possible cap vs crown to other molar Neck + limited neck extension (minimal) Respiratory normal respiratory effort; no respiratory distress Auscultation: lungs clear to auscultation bilaterally; no wheezes Cardiovascular Rate/Rhythm: regular rate and regular rhythm Heart Sounds: + murmur (III/ murmur) Vessels: no carotid bruit Musculoskeletal Spine: + pain with cervical ROM (mild) Extremities: extremities normal to inspection Psychiatric Orientation: alert Lab Results Anesthesia Preop Results Results Anesthesia Widget: WBC 6.69 K/ul (4.8-10.8) 05/04/23 Hgb 13.5 g/dl (12.0-16.0) 05/04/23 Hct 41.2 % (37.0-47.0) 05/04/23 Plt 212 K/uL (130-400) 05/04/23 Na 141 mmol/L (136-145) 05/04/23 K 4.0 mmol/L (3.5-5.1) 05/04/23 Cl 106 mmol/L (98-107) 05/04/23 CO2 28 mmol/L (21-32) 05/04/23 BUN 21 mg/dl (6-23) 05/04/23 Creat 0.58 mg/dl (0.6-1.2) L 05/04/23 Glucose Level 82 mg/dl (70-99(Fasting)) 05/04/23 PT 11.0 Seconds (9.0-12.0) 05/04/23 PTT 25.9 Seconds (21.0-31.0) 05/04/23 INR 1.0 (0.9-1.1) 05/04/23 Urine Color Yellow 05/04/23 Urine Appearance Clear (Clear) 05/04/23 Urine pH 6.5 (4.5-7.5) 05/04/23 Urine Specific [place] 1.014 (1.000-1.030) 05/04/23 Urine Protein Negative (Negative) 05/04/23 Urine Glucose (UA) Negative (Negative) 05/04/23 Urine Ketones Negative (Negative) 05/04/23 Urine Blood Negative (Negative) 05/04/23 Urine Nitrite Negative (Negative) 05/04/23 Urine Bilirubin Negative (Negative) 05/04/23 Urine Urobilinogen Negative (Negative) 05/04/23 Urine Leukocyte Esterase Negative (Negative) 05/04/23 Blood Type AB Positive 05/04/23 Antibody Screen NEGATIVE 05/04/23 Testing Electrocardiogram Date: 05/04/23 Findings: + NSR @ (67bpm ) Incomplete RBBB Possible inferior infarct When compared to EKG from Sep 08, 2020- no significant change was found per cardio Chest X-Ray Date: 05/04/23 Findings: + NAD FINDINGS: Cardiomediastinal and hilar silhouettes are within normal limits. No pneumothorax, pleural effusion, airspace consolidation or pulmonary edema. Unchanged right hemidiaphragmatic elevation. Degenerative changes of the shoulders and spine. Echocardiogram Date: 02/25/18 EF: 62% RWMA: + none Other Findings: + LVH (mild/concentric ) Left atrial enlargement suggests diastolic LV dysfunction. LA mildly enlarged Mild to moderate AV sclerosis without stenosis Trace MR/TR Estimated PASP 28mmHg.
[~2023-05-18 08:20] MED LIST: 300mg Preop IV SCH; 600mg Preop IV SCH; GABAPENTIN 300 MG CAP PO SCH; LR 15ML/HR IV SCH; LR 60ML/HR IV SCH
[2023-05-18] MEDS ORDERED: fentaNYL citrate PF 100 MCG/2 ML VIAL ONE ×2 (08:49→10:37)
--- NOTE | 2023-05-18 09:33 | History & Physical Bridge Note ---
Date of Service May 18, 2023 History & Physical Bridge Note I have examined the patient, reviewed the History & Physical and in the interval since the performance of the History & Physical I have noted the following changes of clinical significance: no changes noted
--- NOTE | 2023-05-18 09:34 | History & Physical Report ---
Date of Service May 18, 2023 Assessment & Plan (1) Neurogenic claudication due to lumbar spinal stenosis: Plan: Lumbar decompression and fusion L4-L5 History of Present Illness Chief Complaint: Back and bilateral leg pain Primary Care Provider: Piper Winkler MD This is a 77-year-old female presents with chronic persistent back and leg pain Extensive course of nonoperative care she is here for surgical invention. Allergies Allergy/AdvReac Type Severity Reaction Status Date / Time Penicillins Allergy Intermediate HIVES Verified 05/18/23 08:44 tramadol Allergy Unknown DIZZY Verified 05/18/23 08:44 Home Medications Medication Instructions Recorded Confirmed Type acetaminophen 325 mg tablet 650 mg PO Q6H PRN pain #60 tabs 09/10/20 05/18/23 Rx aspirin 81 mg tablet,delayed 81 mg PO HS 04/26/23 05/18/23 History release naproxen sodium 220 mg capsule 220 mg PO HS 04/26/23 05/18/23 History omeprazole 20 mg tablet,delayed 20 mg PO DAILY PRN Acid Reflux 04/26/23 05/18/23 History release Past Med/Surg History Medical History (Updated 05/18/23 @ 09:34 by Joni Nieto DO) Cardiac murmur "slight" per patient/chronic- most recent ECHO 2017 (mild to moderate sclerosis- no aortic valve stenosis) COVID-19 08/2020 > was hospitalized but due to a fall that happened, not covid, never had covid symptoms Degenerative disc disease Dyslipidemia Diet controlled GERD (gastroesophageal reflux disease) Controlled and stable Kidney stones hx- no recent issues Osteoarthritis 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) Followed with rheum in the past- stable - follows only with PCP Surgical History History of appendectomy History of section x3 History of colonoscopy History of cystoscopy History of hysterectomy History of tonsillectomy History of total knee replacement bilat [place] teeth extracted Social History Smoking Status: Never smoker Second Hand Exposure: No; Do You Dip or Chew Tobacco: No; Tobacco Cessation Education Requested by Patient: No Hx Alcohol Use: No Hx Substance Use: No Preferred Language: Bulgarian Communication Ability: Effective Orthotics Prosthetics Technician Required: No Beliefs That Will Affect Care: None Current Living Situation: Family Other Information That Helps Us Care for You: No Feels Safe at Home: Yes Safety Concerns: Feels Safe At This Time Assistive Devices: Glasses Physical Exam Physical Exam: Patient is alert and oriented Heart regular rhythm Lungs clear Results & Data Results & Data Vital Signs (Past 12 Hours) Vital Signs Temp Pulse Resp BP Pulse Ox O2 Del Method 05/18/23 08:35 36.9 C 89 20 167/75 H 96 Room Air
[2023-05-18] MEDS ORDERED: ONDANSETRON INJ 2 MG/ML 2 ML VIAL IV PRN ×2 (09:39→13:35)
[2023-05-18] MEDS ORDERED: ePHEDrine sulfate 50 MG/ML AMP IV PRN (09:39)
[2023-05-18] MEDS ORDERED: PROMETHAZINE HCL 6.25 MG in SODIUM CHLORIDE 0.9% 50 ML IV PRN (09:39)
[2023-05-18] MEDS ORDERED: ATROPINE SULFATE 0.1 MG/ML 10ML SYR IV PRN (09:39)
[2023-05-18] MEDS ORDERED: HYDROmorphone INJ 1 MG/ML SYRINGE IV PRN ×2 (09:39→13:35)
[2023-05-18] MEDS ORDERED: BUPIVACAINE/EPINEPHRINE 0.25% 1:200,000 30 ML VIAL ONE (09:57)
[2023-05-18] MEDS ORDERED: FAMOTIDINE/PF 20 MG/2 ML VIAL IV ONE (10:06)
[2023-05-18] MEDS ORDERED: KETAMINE 50 MG/5 ML SYRINGE ONE ×2 (10:36→13:09)
[2023-05-18] MEDS ORDERED: diphenhydrAMINE 50 MG/ML VIAL ONE (10:41)
[2023-05-18] MEDS ORDERED: ROCURONIUM BROMIDE 10 MG/ML 5 ML VIAL IV ONE ×2 (10:41→13:21)
[2023-05-18] MEDS ORDERED: LARYING-O-JET KIT (LTA) ONE (10:41)
[2023-05-18] MEDS ORDERED: PROPOFOL IV EMULSION 10 MG/ML 20 ML VIAL IV ONE (10:41)
[2023-05-18] MEDS ORDERED: DEXAMETHASONE SOD INJ 4 MG/ML VIAL ONE (10:41)
[2023-05-18] MEDS ORDERED: ONDANSETRON INJ 2 MG/ML 2 ML VIAL ONE (10:41)
[2023-05-18] MEDS ORDERED: LIDOCAINE 2% 2 ML VIAL/AMP(20MG/ML) INFIL ONE (10:41)
[2023-05-18] MEDS ORDERED: SUGAMMADEX SODIUM 200 MG/2 ML VIAL IV ONE (10:49)
[2023-05-18] MEDS ORDERED: PHENYLEPHRINE 100MCG/ML 5ML SYR ONE (12:04)
[2023-05-18] MEDS ORDERED: PHENYLEPHRINE HCL 10 MG/ML VIAL ONE (12:04)
--- NOTE | 2023-05-18 12:07 | Operative Report ---
Post Operative Report Pre & Post Diagnosis Operation Date: 05/18/23 10:05 Pre-Op Diagnosis: Spinal Stenosis, Lumbar Region with Neurogenic Claudication. Post-Op Diagnosis: Spinal Stenosis, Lumbar Region with Neurogenic Claudication. I identified the patient and participated in the time-out.: Yes Procedure Operation Date: 05/18/23 10:05 Actual Procedures #1 lumbar decompression bilaterally facetectomies and foraminotomies L3-L4, L4- L5 and L5-S1. #2 posterior spinal fusion L4-L5. #3 placement posterior instrumentation L4-5. #4 interbody fusion L4-5 #5 placement of Spira 13 x 26 mm cage at L4-5. #6 placement locally harvested morselized autograft and posterior gutters. #7 placement of I factor in the interbody space and infuse collagen sponge combined with master graft in the posterior gutters. Surgeon Joni Nieto, DO Clip Coater Elmira Maravilla Estimated Blood Loss 250 Findings See Below The patient is 5 foot tall weighing over 85 kg with a BMI in excess of 36. Patient's body habitus did contribute to significant technical difficulty requiring her deeper retractors and longer instruments in order to perform her procedure. This had at least 50% increased operative time. Specimens None Indications This is a 77-year-old female presents problems diagnosis after failing course of nonoperative care she is here for surgical invention Description of Procedure Patient was met with identified informed consent obtained. Patient was then taken to the operative suite underwent ablation placed in a prone position on the Bahman table atop the Amandeep frame. All bony promises well-padded eyes inspected to ensure no external pressure placed upon the. This point the lumbar spine was prepped and draped in a sterile fashion. Sharp dissection with the assistance of Bovie cautery to form down to and exposing the lamina transverse processes of L4-L5. From caudal cephalad fashion a laminectomy of L5 for partial laminectomy L3 was performed including medial facetectomies and foraminotomies addressing severe spinal stenosis. Pedicle screws then placed in L4-5 bilaterally with assistance of fluoroscopy and the properly sized andrea placed. By way of a trans foraminal approach on the right complete discectomy of L4-5 was performed endplates corrected to subcortically bone and a 13 x 26 mm Spira cage with I factor tapped in position. The rods were then locked into final position bilaterally. The transverse processes of L3-4 and L5 burred to subcortical bleeding bone. Infuse collagen sponge from mass graft locally harvested morselized autograft was then placed in the posterior gutters. 15 round TMA drain inserted. The incision was then closed with 1 Vicryl to fascia 2-0 Vicryl subcutaneously and 4 Monocryl for final skin closure. Steri-Strips sterile dressings placed. Patient awakened taken to PACU in stable condition. Please note spinal cord monitoring visualized at the procedure no changes noted. Lastly Elmira Maravilla was present at the entire surgery and while the patient positioning complex portion of the surgery and final skin closure. I attest to the content of the Intraoperative Record and any orders documented therein. Any exceptions are noted below.
[2023-05-18] MEDS: fentaNYL citrate PF 100 MCG/2 ML VIAL IV PRN ×2 (12:53→12:58)
[2023-05-18] MEDS ORDERED: HYDROmorphone INJ 2 MG/ML SYR/VIAL ONE (13:09)
[2023-05-18] MEDS ORDERED: ACETAMINOPHEN 500 MG TAB PO PRN (13:35)
[2023-05-18] MEDS ORDERED: ALUMINUM/MAGNESIUM SUSP 30 ML UDC PO PRN (13:35)
[2023-05-18] MEDS ORDERED: SOD PHOSPHATE/SOD BIPHOSPHATE ENEMA 132 ML BTL PR PRN (13:35)
[2023-05-18] MEDS ORDERED: hydrOXYzine HCl 25 MG TAB PO PRN (13:35)
[2023-05-18] MEDS ORDERED: bisacodyL 10 MG SUPP PR PRN (13:35)
[2023-05-18] MEDS ORDERED: ONDANSETRON 4 MG OD TAB PO PRN (13:35)
[2023-05-18] MEDS ORDERED: DO NOT ADMINISTER FLU VACCINE PRN (13:35)
[2023-05-18] MEDS ORDERED: LORazepam 0.5 MG TAB PO PRN (13:35)
[2023-05-18] MEDS ORDERED: NALOXONE HCL 0.4 MG/1 ML VIAL/CARP IV PRN (13:35)
[2023-05-18] MEDS ORDERED: FAMOTIDINE 20 MG TAB PO PRN (13:35)
[2023-05-18] MEDS ORDERED: METOCLOPRAMIDE HCL INJ 5 MG/ML 2 ML VIAL IV PRN (13:35)
[2023-05-18] MEDS ORDERED: ACETAMINOPHEN 1,000 MG/100 ML VIAL IV PRN (13:35)
[2023-05-18] MEDS ORDERED: DO NOT ADMINISTER PNEUMOCOCCAL VACCINE PRN (13:35)
[2023-05-18] MEDS ORDERED: PROMETHAZINE HCL 12.5 MG in SODIUM CHLORIDE 0.9% 50 ML IV PRN (13:35)
[2023-05-18] MEDS ORDERED: MAGNESIUM HYDROXIDE SUSP 30 ML UDC PO PRN (13:35)
[2023-05-18] MEDS ORDERED: HYDROmorphone INJ 0.5 MG/0.5 ML SYR IV PRN (13:35)
[2023-05-18] MEDS ORDERED: diphenhydrAMINE Capsule 25 MG CAP PO PRN (13:35)
[2023-05-18] MEDS ORDERED: LORazepam 2 MG/1 ML VIAL IV PRN (13:35)
[2023-05-18] MEDS ORDERED: PANTOprazole 40 MG TAB PO PRN (13:49)
--- NOTE | 2023-05-18 13:49 | Fluoroscopy Report ---
FL lumbar spine 2-3V CLINICAL HISTORY: L4-L5 DECOMPRESSION FUSION WITH INTERBODY COMPARISON STUDY: 09/08/2020 FLUOROSCOPY TIME: 26.9 seconds FLUOROSCOPY IMAGES: 2 EXPOSURE DOSE: 35.52 mGy FINDINGS: Posterior bilateral andrea and screw fusion hardware with discectomy at L4-L5. The hardware ap pears intact. There is a small looped metallic density structure noted adjacent to the intervertebral disc spacers seen on the second image. IMPRESSION: Fluoroscopic assistance of the above. ACT 112: Negative or not required by law. Electronically signed by: Brenton Lou M.D. 05/18/2023 1:47 PM
--- NOTE | 2023-05-18 14:12 | Anesthesiology Progress Note ---
Date of Service May 18, 2023 Anesthesia Post Procedure Vital Signs Vital Signs: Temp Pulse Pulse Resp BP Pulse Ox O2 Del Method 05/18/23 13:30 37.0 C 71 15 137/80 96 Room Air 05/18/23 13:15 37.3 C 77 15 146/65 H 96 Nasal Cannula 05/18/23 13:05 37.3 C 78 18 141/67 H 95 Oxymask 05/18/23 12:55 80 13 142/67 H 93 Oxymask 05/18/23 12:45 79 11 L 150/74 H 98 Oxymask 05/18/23 12:35 81 12 151/70 H 97 Oxymask 05/18/23 12:28 36.1 C L 84 16 137/84 99 Oxymask 05/18/23 08:35 36.9 C 89 20 167/75 H 96 Room Air O2 Flow Rate 05/18/23 13:30 05/18/23 13:15 2 05/18/23 13:05 1 05/18/23 12:55 3 05/18/23 12:45 3 05/18/23 12:35 5 05/18/23 12:28 7 05/18/23 08:35 Transfer of Care Handoff Completed per policy Notes Mental Status: alert / awake / arousable and participated in evaluation Patient Amnestic to Procedure: Yes Nausea / Vomiting: adequately controlled Pain: adequately controlled Airway Patency, RR, SpO2: stable & adequate BP & HR: stable & adequate Hydration State: stable & adequate Anesthetic Complications: no major complications apparent and Pt Satisfied with anesthetic care
[2023-05-18] MEDS: oxyCODONE HCL IR 5 MG TAB (IMMEDIATE RELEASE) PO PRN ×2 (14:56→23:29)
[2023-05-18] MEDS: LACTATED RINGER'S 1,000 ML IV SCH ×2 (14:57→21:40)
--- NOTE | 2023-05-18 15:44 | Consultation ---
Date of Consultation May 18, 2023 Assessment & Plan (1) Neurogenic claudication due to lumbar spinal stenosis: (2) Dyslipidemia: (3) Moderate aortic stenosis: (4) GERD (gastroesophageal reflux disease): Plan This is a 77-year-old female who has a significant past medical history of HLD, GERD, chronic low back pain and moderate aortic valve stenosis who presents for elective lower back surgery by Dr. Nieto. Neurogenic claudication due to lumbar spinal stenosis Status post L4-L5 lumbar decompression fusion, POD #[address] Nieto EBL 250 mL, TAM drain in place Pain/wound management per orthopedic Activity and therapy as prescribed by Ortho Encourage incentive spirometry wean oxygen as able Hyperlipidemia Diet controlled Chronic, stable Moderate aortic stenosis Currently euvolemic Currently on IV fluids, will place stop time and reevaluate in a.m. Chronic, stable GERD As needed PPI Obesity BMI 36.6 Encourage diet lifestyle modifications as able DVT ppx: SCDS FULL CODE PCP: Sonido Franco MD Dispo: per primary Pt was seen and examined in collaboration with Dr. Crump, please see addendum A total of 55 was spent coordinating, documenting, and providing care for this patient excluding time spent in the performance of separately billed services. This included personally viewing all current laboratories and imaging studies, m edication reconciliation, outpatient chart review, and discussion with specialists. Thank you for this consultation. We will follow the patient with you during their hospital stay. You can reach a member of the [facility] Hospitalist Team 05/04 via hospitalist role on tiger text. Supervising Physician Co-Signing Physician Notes Pt seen and examined by me, care coordinated w/ Myles Anderson PA-C, pls refer to her note above for further detail. Pt is a 77 yo F with HLD, GERD, chronic low back pain and moderate aortic valve stenosis who is now s/p lumbar spinal surgery by Dr. Nieto. Currently laying in bed, in no acute distress. She is awake alert oriented and answering appropriately. She is currently on supplemental oxygen, however denies any shortness of breath, denies any chest pain, nausea, headache or abdominal pain. She has not tried to drink or eat anything yet. And currently feels quite tired from anesthesia. Lungs are clear to auscultation, heart sounds regular, with systolic murmur, abdomen soft nontender nondistended. Skin is warm and dry, and patient is moving extremities. Prior to surgery, pt underwent echocardiogram on 05/10/2023 due to a cardiac murmur which showed preserved LVEF at 66 5%, normal RV size and systolic function and moderate aortic valve stenosis. By history she was able to perform 4 METS of activity without exertional symptoms and was deemed stable to undergo procedure. Today she underwent L4-L5 decompression fusion and tolerated the procedure well. Of significance patient has prior history of GERD controlled with PPI as needed. Continue to closely monitor, encourage incentive spirometer, try to wean off oxygen. Plan as above. MD Alisia History of Present Illness Requesting Physician: Dr. Nieto Reason for Consultation: Post op medical management Attending Physician: Joni Nieto DO History of Present Illness This is a 77-year-old female who has a significant past medical history of HLD, GERD, chronic low back pain and moderate aortic valve stenosis who presents for elective lower back surgery by Dr. Nieto. Of significance patient underwent cardiac clearance on 05/13/2023. It was independently reviewed and outside medical records. Patient underwent echocardiogram on 05/10/2023 due to a cardiac murmur which showed preserved LVEF at 66 5%, normal RV size and systolic function and moderate aortic valve stenosis. By history she was able to perform 4 METS of activity without exertional symptoms and was deemed stable to undergo procedure. Today she underwent L4-L5 decompression fusion and tolerated the procedure well. Of significance patient has prior history of GERD controlled with PPI as needed. She also has history of hyperlipidemia but diet controlled. Allergies Allergy/AdvReac Type Severity Reaction Status Date / Time Penicillins Allergy Intermediate HIVES Verified 05/18/23 08:44 tramadol Allergy Unknown DIZZY Verified 05/18/23 08:44 Home Medications Medication Instructions Recorded Confirmed Type acetaminophen 325 mg tablet 650 mg PO Q6H PRN pain #60 tabs 09/10/20 05/18/23 Rx aspirin 81 mg tablet,delayed 81 mg PO HS 04/26/23 05/18/23 History release naproxen sodium 220 mg capsule 220 mg PO HS 04/26/23 05/18/23 History omeprazole 20 mg tablet,delayed 20 mg PO DAILY PRN Acid Reflux 04/26/23 05/18/23 History release oxycodone 5 mg tablet 5 mg PO Q6H PRN pain #30 tabs 05/18/23 Rx Patient History Medical History (Updated 05/18/23 @ 15:46 by Kaila Anderson PA-C) Cardiac murmur "slight" per patient/chronic- most recent ECHO 2017 (mild to moderate sclerosis- no aortic valve stenosis) COVID-19 08/2020 > was hospitalized but due to a fall that happened, not covid, never had covid symptoms Degenerative disc disease Dyslipidemia Diet controlled GERD (gastroesophageal reflux disease) Controlled and stable Kidney stones hx- no recent issues Osteoarthritis 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) Followed with rheum in the past- stable - follows only with PCP Surgical History History of appendectomy History of section x3 History of colonoscopy History of cystoscopy History of hysterectomy History of tonsillectomy History of total knee replacement bilat [place] teeth extracted Family History (Updated 05/18/23 @ 15:39 by Kaila Anderson PA-C) Mother CLL (chronic lymphocytic leukemia) Brother Cancer esophageal Father Myocardial infarction Social History Smoking Status: Never smoker Second Hand Exposure: No; Do You Dip or Chew Tobacco: No; Tobacco Cessation Education Requested by Patient: No Hx Alcohol Use: No Hx Substance Use: No Preferred Language: Chinese Communication Ability: Effective Marina Porter Required: No Beliefs That Will Affect Care: None Current Living Situation: Family Other Information That Helps Us Care for You: No Feels Safe at Home: Yes Safety Concerns: Feels Safe At This Time Assistive Devices: Glasses Review of Systems Review of Systems: All systems reviewed & are unremarkable except as noted in HPI & below Physical Exam Physical Exam: Constitutional: WD/WN, vitals as above, NAD, sitting up in bed, pleasant, conversing easily Head: Normocephalic, Atraumatic Eyes: PERRL, conjunctivae normal, anicteric sclerae ENMT: external ear and nose normal, oropharynx normal Neck: trachea midline, no thyromegaly normal visual inspection Respiratory: normal respiratory effort, lungs clear to auscultation, no wheeze, rales, rhonchi. Normal insp/exp effort, no accessory muscle use Cardiovascular: RRR, no murmur, no edema Vessels: no JVD or carotid bruit Chest: normal inspection of chest Abdomen: normal bowel sounds, soft, nontender, no hepatosplenomegaly Musculoskeletal: no cyanosis or clubbing, extremities motor strength 5/5 Skin: no rashes, warm and dry normal turgor Neurologic: PERRL, EOMI, accommodation nl, no face palsy, no dysarthria CN's II-XI intact bilaterally and moves all extremities Psychiatric: A+Ox3, euthymic affect Lymphatic: no cervical or axillary lymphadenopathy : deferred Results & Data Vital Signs (Past 12 Hours) Vital Signs Temp Pulse Pulse Resp BP Pulse Ox O2 Del Method 05/18/23 15:30 36.9 C 68 16 126/74 97 Nasal Cannula 05/18/23 14:40 36.3 C L 83 127/77 98 Nasal Cannula 05/18/23 14:18 36.5 C 76 18 123/75 96 Nasal Cannula 05/18/23 14:11 36.5 C 73 18 123/75 96 Nasal Cannula 05/18/23 13:30 37.0 C 71 15 137/80 96 Room Air 05/18/23 13:15 37.3 C 77 15 146/65 H 96 Nasal Cannula 05/18/23 13:05 37.3 C 78 18 141/67 H 95 Oxymask 05/18/23 12:55 80 13 142/67 H 93 Oxymask 05/18/23 12:45 79 11 L 150/74 H 98 Oxymask 05/18/23 12:35 81 12 151/70 H 97 Oxymask 05/18/23 12:28 36.1 C L 84 16 137/84 99 Oxymask 05/18/23 08:35 36.9 C 89 20 167/75 H 96 Room Air O2 Flow Rate 05/18/23 15:30 2 05/18/23 14:40 2 05/18/23 14:18 2 05/18/23 14:11 2 05/18/23 13:30 05/18/23 13:15 2 05/18/23 13:05 1 05/18/23 12:55 3 05/18/23 12:45 3 05/18/23 12:35 5 05/18/23 12:28 7 05/18/23 08:35 Laboratory Results Preoperative lab work independently reviewed. This was performed on 05/04/2023 CBC was generally unremarkable with stable H&H of 13.5 and 41.2. Her BUN and creatinine are stable at 21 and 0.58. Her urinalysis was negative. Diagnostic Findings Lumbar Spine X-Ray 05/18/23 10:05 FL lumbar spine 2-3V CLINICAL HISTORY: L4-L5 DECOMPRESSION FUSION WITH INTERBODY COMPARISON STUDY: 09/08/2020 FLUOROSCOPY TIME: 26.9 seconds FLUOROSCOPY IMAGES: 2 EXPOSURE DOSE: 35.52 mGy FINDINGS: Posterior bilateral andrea and screw fusion hardware with discectomy at L4-L5. The hardware appears intact. There is a small looped metallic density structure noted adjacent to the intervertebral disc spacers seen on the second image. IMPRESSION: Fluoroscopic assistance of the above. ACT 112: Negative or not required by law. revealed no acute process. Medications Administered Current Inpatient Medications Acetaminophen (Acetaminophen 500 Mg Tab) 1,000 mg PO Q8H PRN PRN Reason: MILD Pain Scale 1,2,3 & Pre PT Stop: 06/17/23 13:34 Al Hydrox/Mg Hydrox/Simethicone (Aluminum/Magnesium Susp 30 Ml Udc) 30 ml PO Q6H PRN PRN Reason: Dyspepsia Stop: 06/17/23 13:34 Aspirin (Aspirin 81 Mg Ectab) 81 mg PO HS DREW Stop: 06/17/23 20:59 Atropine Sulfate (Atropine Sulfate 0.1 Mg/Ml 10ml Syr) 0.5 mg IV Q1M PRN PRN Reason: PACU Use-HR<40 &/or Bradycardi Stop: 05/18/23 17:39 Bisacodyl (Bisacodyl 10 Mg Supp) 10 mg IN DAILY PRN PRN Reason: Constipation Stop: 06/17/23 13:34 Diphenhydramine HCl (Diphenhydramine Capsule 25 Mg Cap) 25 mg PO Q6H PRN PRN Reason: Allergic Rhinitis/Insomnia Stop: 06/17/23 13:34 Ephedrine Sulfate (Ephedrine Sulfate 50 Mg/Ml Amp) 5 mg IV Q5M PRN PRN Reason: PACU Use Only-SBP<90 mmHg Stop: 05/18/23 17:39 Famotidine (Famotidine 20 Mg Tab) 20 mg PO Q12H PRN PRN Reason: Dyspepsia Stop: 06/17/23 13:34 Fentanyl Citrate (Fentanyl Citrate Pf 100 Mcg/2 Ml Vial) 25 mcg IV Q5M PRN PRN Reason: PACU Use Only-Pain Stop: 05/18/23 17:39 Last Admin: 05/18/23 12:58 Dose: 25 mcg Hydromorphone HCl (Hydromorphone Inj 1 Mg/Ml Syringe) 0.25 mg IV Q5M PRN PRN Reason: PACU Use Only-Pain Stop: 05/18/23 17:39 Hydromorphone HCl (Hydromorphone Inj 0.5 Mg/0.5 Ml Syr) 0.5 mg IV Q3H PRN PRN Reason: MODERATE Pain (Scale 4,5,6) & Pre PT Stop: 06/01/23 13:34 Hydromorphone HCl (Hydromorphone Inj 1 Mg/Ml Syringe) 1 mg IV Q3H PRN PRN Reason: SEVERE Pain (Scale 7,8,9,10) Stop: 06/01/23 13:34 Hydroxyzine HCl (Hydroxyzine Hcl 25 Mg Tab) 25 mg PO Q8H PRN PRN Reason: Anxiety Stop: 06/17/23 13:34 Promethazine HCl 6.25 mg/ (Sodium Chloride) 50.25 mls @ 204 mls/hr IV ONCE PRN PRN Reason: PACU Use Only-Nausea/Vomiting Stop: 05/18/23 17:40 Lactated Ringer's (Lr) 1,000 mls @ 100 mls/hr IV .Q10H DREW Stop: 06/17/23 13:34 Last Admin: 05/18/23 14:57 Dose: 100 mls/hr Promethazine HCl 12.5 mg/ (Sodium Chloride) 50.5 mls @ 202 mls/hr IV Q6H PRN PRN Reason: Nausea &/or Vomiting Stop: 06/17/23 13:34 Acetaminophen (Ofirmev) 1,000 mg in 100 mls @ 400 mls/hr IV Q8H PRN PRN Reason: Pain Rating 1-3 & Pre PT Stop: 05/19/23 13:36 Clindamycin Phosphate (Cleocin/D5w) 600 mg in 50 mls @ 100 mls/hr IV Q8H DREW Stop: 05/19/23 02:44 Dexamethasone 6 mg/ Syringe 1.5 mls @ 1 mls/min IV DAILY DREW Stop: 05/21/23 09:02 Influenza Virus Vaccine Quadrival (Do Not Administer Flu Vaccine) 1 each N/A PRN PRN PRN Reason: Notification Stop: 06/17/23 13:34 Lorazepam (Lorazepam 0.5 Mg Tab) 0.5 mg PO Q8H PRN PRN Reason: Sedation/Anxiety Stop: 06/17/23 13:34 Lorazepam (Lorazepam 2 Mg/1 Ml Vial) 0.5 mg IV Q8H PRN PRN Reason: Sedation/Anxiety Stop: 06/17/23 13:34 Magnesium Hydroxide (Magnesium Hydroxide Susp 30 Ml Udc) 30 ml PO Q24H PRN PRN Reason: Constipation Stop: 06/17/23 13:34 Metoclopramide HCl (Metoclopramide Hcl Inj 5 Mg/Ml 2 Ml Vial) 10 mg IV Q6H PRN PRN Reason: Nausea &/or Vomiting Stop: 06/17/23 13:34 Naloxone HCl (Naloxone Hcl 0.4 Mg/1 Ml Vial/Carp) 0.1 mg IV Q5M PRN PRN Reason: Oversedation/Resp depression Stop: 06/17/23 13:34 Ondansetron HCl (Ondansetron Inj 2 Mg/Ml 2 Ml Vial) 4 mg IV ONCE PRN PRN Reason: PACU Use Only-Nausea/Vomiting Stop: 05/18/23 17:40 Ondansetron HCl (Ondansetron Inj 2 Mg/Ml 2 Ml Vial) 4 mg IV Q6H PRN PRN Reason: Nausea &/or Vomiting Stop: 06/17/23 13:34 Ondansetron HCl (Ondansetron 4 Mg Od Tab) 4 mg PO Q6H PRN PRN Reason: Nausea Stop: 06/17/23 13:34 Oxycodone HCl (Oxycodone Hcl Ir 5 Mg Tab (Immediate Release)) 5 - 10 mg PO Q4H PRN PRN Reason: Pain & Pre PT Stop: 06/01/23 13:34 Last Admin: 05/18/23 14:56 Dose: 10 mg Pantoprazole Sodium (Pantoprazole 40 Mg Tab) 40 mg PO DAILY PRN PRN Reason: Acid Reflux Stop: 06/17/23 13:48 Pneumococcal Polyvalent Vaccine (Do Not Administer Pneumococcal Vaccine) 1 each N/A PRN PRN PRN Reason: Notification Stop: 06/17/23 13:34 Polyethylene Glycol (Polyethylene (Miralax) 17 Gm Pack) 17 gm PO Q6 DREW Stop: 06/18/23 05:59 Senna/Docusate Sodium (Docusate Sodium/Senna 50/8.6mg Tab) 2 tab PO HS DREW Stop: 06/17/23 20:59 Sodium Biphosphate/Sodium Phosphate (Sod Phosphate/Sod Biphosphate Enema 132 Ml Btl) 132 ml IN ONE PRN PRN Reason: Constipation Stop: 06/17/23 13:34 ECG Additional Comments: EKG was independently reviewed by myself and revealed normal sinus rhythm, ventricular rate 67 bpm, no ST or T wave changes, QTc 393 MS
[2023-05-18] MEDS: CLINDAMYCIN/D5W 600 MG/50 ML BAG IV SCH (19:38)
[2023-05-18] MEDS: DOCUSATE SODIUM/SENNA 50/8.6MG TAB PO SCH (19:39)
[2023-05-18] MEDS: ASPIRIN 81 MG ECTAB PO SCH (19:39)
[2023-05-19] MEDS: CLINDAMYCIN/D5W 600 MG/50 ML BAG IV SCH (02:16)
[2023-05-19] MEDS: oxyCODONE HCL IR 5 MG TAB (IMMEDIATE RELEASE) PO PRN ×3 (04:00→21:15)
[2023-05-19] MEDS: POLYETHYLENE (MIRALAX) 17 GM PACK PO SCH ×3 (05:47→16:39)
[2023-05-19] MEDS: dexAMETHasone 6 MG in SYRINGE 0 ML IV SCH (07:55)
[2023-05-19 08:52] LABS: Basophils # (auto) 0.01 K/uL (0.00-0.20); Basophils % (auto) 0.1 %; Hematocrit (blood only) 32.6 % (37.0-47.0); Hemoglobin 10.7 g/dl (12.0-16.0); Immature Granulocytes # (auto) 0.05 K/uL (0.01-0.20); Immature Granulocytes % (auto) 0.4 %; Lymphocytes % (auto) 12.6 %; Mean Corpuscular Hemoglobin 27.2 pg (25.0-34.0); Mean Corpuscular Hgb Conc 32.8 g/dL (32.0-36.0); Mean Corpuscular Volume 82.7 fL (80.0-100.0); Mean Platelet Volume 12.6 fL (9.4-12.4); Monocytes # (auto) 0.97 K/uL (0.11-0.59); Monocytes % (auto) 8.2 %; Neutrophils # (auto) 9.34 K/uL (1.40-6.50); Neutrophils % (auto) 78.7 %; Platelet Count 171 K/uL (130-400); RDW Coefficient of Variation 14.3 % (11.5-14.5); RDW Standard Deviation 43.2 fL (36.4-46.3); Red Blood Count 3.94 M/uL (4.20-5.40); White Blood Count 11.87 K/ul (4.8-10.8)
[2023-05-19 09:25] LABS: Calcium 8.6 mg/dl (8.6-10.3); Creatinine Clr Calc Pharmacy 85.8 ml/min; Est GFR (African American) 106.2 ml/min; Est GFR (Non-African American) 91.7 ml/min; Potassium 4.2 mmol/L (3.5-5.1)
[2023-05-19] MEDS: CALCIUM CARBONATE 500 MG CHEWABLE TAB PO PRN (11:53)
--- NOTE | 2023-05-19 11:57 | Hospitalist Progress Note ---
Date of Service May 19, 2023 Assessment & Plan (1) Neurogenic claudication due to lumbar spinal stenosis: (2) Dyslipidemia: (3) Moderate aortic stenosis: (4) GERD (gastroesophageal reflux disease): (5) Acute blood loss as cause of postoperative anemia: Plan This is a 77-year-old female who has a significant past medical history of HLD, GERD, chronic low back pain and moderate aortic valve stenosis who presents for elective lower back surgery by Dr. Nieto. Neurogenic claudication due to lumbar spinal stenosis Status post L4-L5 lumbar decompression fusion, POD #[address] Nieto EBL 250 mL, TAM drain in place Pain/wound management per orthopedic Activity and therapy as prescribed by Ortho Encourage incentive spirometry wean oxygen as able Acute blood loss anemia, as cause of post op anemia hgb 10.7, pre op 13.5 expected given EBL and TAM drain ouptut likely some dilution component as well monitor, repeat cbc in a.m. Hyperlipidemia Diet controlled Chronic, stable Moderate aortic stenosis Currently euvolemic off IVF Chronic, stable GERD As needed PPI, pepcid, tums pt with indigestion this a.m. 2/2 vomiting encourage pt to utilize prns Obesity BMI 36.6 Encourage diet lifestyle modifications as able DVT ppx: SCDS FULL CODE PCP: Sonido Franco MD Dispo: per primary Pt was seen and examined in collaboration with Dr. Neely, please see addendum A total of 45 was spent coordinating, documenting, and providing care for this patient excluding time spent in the performance of separately billed services. This included personally viewing all current laboratories and imaging studies, medication reconciliation, outpatient chart review, and discussion with specialists. Thank you for this consultation. We will follow the patient with you during their hospital stay. You can reach a member of the [facility] Hospitalist Team 05/04 via hospitalist role on tiger text. Admission and Anticipated Discharge Date Admission Date: May 18, 2023 Supervising Physician Co-Signing Physician Notes Patient seen and examined at bedside independently. Discussed with above provider. Patient had nausea and vomiting today. She reports passing gas; no bowel movement yet. Can keep her n.p.o. and slowly advance diet as tolerated. IV hydration with normal saline at 80 cc/h. Continue other medication. Subjective Patient was seen and examined in room 384 bed 2. Follow-up lumbar surgery. Patient complains of nausea and vomiting this morning. She states that she drank MiraLAX with orange juice and started vomiting orange juice. She states that she was given her option of beverages and decided to go with O, but in the past has vomited with orange juice. She now complains of some heartburn and j ust overall not feeling well. She denies any fever, chills, sweats, lightheadedness, dizziness, chest pain or shortness of breath. She does have expected incisional tenderness but denies any lower extremity pain. She is urinating without difficulty and was able to get up out of bed last evening. She is passing gas. Review of Systems Review of Systems: All systems reviewed & are unremarkable except as noted in HPI & below Physical Exam Physical Exam: Constitutional: WD/WN, vitals as above, NAD, sitting up in bed, pleasant, conversing easily Head: Normocephalic, Atraumatic Eyes: PERRL, conjunctivae normal, anicteric sclerae ENMT: external ear and nose normal, oropharynx normal Neck: trachea midline, no thyromegaly normal visual inspection Respiratory: normal respiratory effort, lungs clear to auscultation, no wheeze, rales, rhonchi. Normal insp/exp effort, no accessory muscle use Cardiovascular: RRR, no murmur, no edema Vessels: no JVD or carotid bruit Chest: normal inspection of chest Abdomen: normal bowel sounds, soft, nontender, Musculoskeletal: no cyanosis or clubbing, extremities motor strength 5/5 Skin: no rashes, warm and dry normal turgor Neurologic: PERRL, EOMI, accommodation nl, no face palsy, no dysarthria CN's II-XI intact bilaterally and moves all extremities Psychiatric: A+Ox3, euthymic affect : deferred Results & Data Results & Data Vital Signs (Past 12 Hours) Vital Signs Temp Pulse Resp BP Pulse Ox O2 Del Method 05/19/23 09:06 36.6 C 69 18 118/70 93 Room Air 05/19/23 03:50 37.0 C 70 15 113/72 96 Room Air Laboratory Results Short CBC 05/19/23 Range/Units 08:27 WBC 11.87 H (4.8-10.8) K/ul Hgb 10.7 L (12.0-16.0) g/dl Hct 32.6 L (37.0-47.0) % Plt Count 171 (130-400) K/uL BMP 05/19/23 08:27 Sodium 139 Potassium 4.2 Chloride 103 Carbon Dioxide 31 BUN 20 Creatinine 0.54 L Glucose 113 H Calcium 8.6 Medications Administered Current Inpatient Medications Acetaminophen (Acetaminophen 500 Mg Tab) 1,000 mg PO Q8H PRN PRN Reason: MILD Pain Scale 1,2,3 & Pre PT Stop: 06/17/23 13:34 Al Hydrox/Mg Hydrox/Simethicone (Aluminum/Magnesium Susp 30 Ml Udc) 30 ml PO Q6H PRN PRN Reason: Dyspepsia Stop: 06/17/23 13:34 Aspirin (Aspirin 81 Mg Ectab) 81 mg PO HS DREW Stop: 06/17/23 20:59 Last Admin: 05/18/23 19:39 Dose: 81 mg Bisacodyl (Bisacodyl 10 Mg Supp) 10 mg MN DAILY PRN PRN Reason: Constipation Stop: 06/17/23 13:34 Calcium Carbonate (Calcium Carbonate 500 Mg Chewable Tab) 1,000 mg PO Q8H PRN PRN Reason: Indigestion Stop: 06/18/23 11:43 Last Admin: 05/19/23 11:53 Dose: 1,000 mg Diphenhydramine HCl (Diphenhydramine Capsule 25 Mg Cap) 25 mg PO Q6H PRN PRN Reason: Allergic Rhinitis/Insomnia Stop: 06/17/23 13:34 Famotidine (Famotidine 20 Mg Tab) 20 mg PO Q12H PRN PRN Reason: Dyspepsia Stop: 06/17/23 13:34 Hydromorphone HCl (Hydromorphone Inj 0.5 Mg/0.5 Ml Syr) 0.5 mg IV Q3H PRN PRN Reason: MODERATE Pain (Scale 4,5,6) & Pre PT Stop: 06/01/23 13:34 Hydromorphone HCl (Hydromorphone Inj 1 Mg/Ml Syringe) 1 mg IV Q3H PRN PRN Reason: SEVERE Pain (Scale 7,8,9,10) Stop: 06/01/23 13:34 Hydroxyzine HCl (Hydroxyzine Hcl 25 Mg Tab) 25 mg PO Q8H PRN PRN Reason: Anxiety Stop: 06/17/23 13:34 Promethazine HCl 12.5 mg/ (Sodium Chloride) 50.5 mls @ 202 mls/hr IV Q6H PRN PRN Reason: Nausea &/or Vomiting Stop: 06/17/23 13:34 Acetaminophen (Ofirmev) 1,000 mg in 100 mls @ 400 mls/hr IV Q8H PRN PRN Reason: Pain Rating 1-3 & Pre PT Stop: 05/19/23 13:36 Dexamethasone 6 mg/ Syringe 1.5 mls @ 1 mls/min IV DAILY DREW Stop: 05/21/23 09:02 Last Admin: 05/19/23 07:55 Dose: 1 mls/min Influenza Virus Vaccine Quadrival (Do Not Administer Flu Vaccine) 1 each N/A PRN PRN PRN Reason: Notification Stop: 06/17/23 13:34 Lorazepam (Lorazepam 0.5 Mg Tab) 0.5 mg PO Q8H PRN PRN Reason: Sedation/Anxiety Stop: 06/17/23 13:34 Lorazepam (Lorazepam 2 Mg/1 Ml Vial) 0.5 mg IV Q8H PRN PRN Reason: Sedation/Anxiety Stop: 06/17/23 13:34 Magnesium Hydroxide (Magnesium Hydroxide Susp 30 Ml Udc) 30 ml PO Q24H PRN PRN Reason: Constipation Stop: 06/17/23 13:34 Metoclopramide HCl (Metoclopramide Hcl Inj 5 Mg/Ml 2 Ml Vial) 10 mg IV Q6H PRN PRN Reason: Nausea &/or Vomiting Stop: 06/17/23 13:34 Naloxone HCl (Naloxone Hcl 0.4 Mg/1 Ml Vial/Carp) 0.1 mg IV Q5M PRN PRN Reason: Oversedation/Resp depression Stop: 06/17/23 13:34 Ondansetron HCl (Ondansetron Inj 2 Mg/Ml 2 Ml Vial) 4 mg IV Q6H PRN PRN Reason: Nausea &/or Vomiting Stop: 06/17/23 13:34 Last Admin: 05/19/23 07:58 Dose: 4 mg Ondansetron HCl (Ondansetron 4 Mg Od Tab) 4 mg PO Q6H PRN PRN Reason: Nausea Stop: 06/17/23 13:34 Oxycodone HCl (Oxycodone Hcl Ir 5 Mg Tab (Immediate Release)) 5 - 10 mg PO Q4H PRN PRN Reason: Pain & Pre PT Stop: 06/01/23 13:34 Last Admin: 05/19/23 04:00 Dose: 10 mg Pantoprazole Sodium (Pantoprazole 40 Mg Tab) 40 mg PO DAILY PRN PRN Reason: Acid Reflux Stop: 06/17/23 13:48 Pneumococcal Polyvalent Vaccine (Do Not Administer Pneumococcal Vaccine) 1 each N/A PRN PRN PRN Reason: Notification Stop: 06/17/23 13:34 Polyethylene Glycol (Polyethylene (Miralax) 17 Gm Pack) 17 gm PO Q6 DREW Stop: 06/18/23 05:59 Last Admin: 05/19/23 11:10 Dose: 17 gm Senna/Docusate Sodium (Docusate Sodium/Senna 50/8.6mg Tab) 2 tab PO HS DREW Stop: 06/17/23 20:59 Last Admin: 05/18/23 19:39 Dose: 2 tab Sodium Biphosphate/Sodium Phosphate (Sod Phosphate/Sod Biphosphate Enema 132 Ml Btl) 132 ml MN ONE PRN PRN Reason: Constipation Stop: 06/17/23 13:34
[2023-05-19] MEDS ORDERED: SODIUM CHLORIDE 0.9% 1,000 ML IV SCH (12:15)
[2023-05-19] MEDS: DOCUSATE SODIUM/SENNA 50/8.6MG TAB PO SCH (21:16)
[2023-05-19] MEDS: ASPIRIN 81 MG ECTAB PO SCH (21:17)
[2023-05-20] MEDS: POLYETHYLENE (MIRALAX) 17 GM PACK PO SCH ×5 (00:23→21:37)
[2023-05-20] MEDS: oxyCODONE HCL IR 5 MG TAB (IMMEDIATE RELEASE) PO PRN ×3 (04:56→23:44)
[2023-05-20] MEDS: dexAMETHasone 6 MG in SYRINGE 0 ML IV SCH (08:42)
--- NOTE | 2023-05-20 09:46 | Orthopedic Progress Note ---
Date of Service May 20, 2023 Assessment & Plan (1) Neurogenic claudication due to lumbar spinal stenosis: Plan: At this time we will continue physical therapy monitor TAM output anticipate discharge home tomorrow. Admission and Anticipated Discharge Date Admission Date: May 18, 2023 Subjective Back pain controlled leg same back pain controlled leg symptoms markedly improved. Nausea improved. Physical Exam Physical Exam: Patient is upright in bed. She is comfortable. Is constricted testing. Results & Data Vital Signs (Past 12 Hours) Vital Signs Temp Pulse Resp BP Pulse Ox O2 Del Method 05/20/23 07:58 37.2 C 73 18 109/65 94 Room Air 05/19/23 23:55 36.8 C 75 18 120/67 97 Room Air
--- NOTE | 2023-05-20 16:53 | Hospitalist Progress Note ---
Date of Service May 20, 2023 Assessment & Plan (1) Neurogenic claudication due to lumbar spinal stenosis: (2) Dyslipidemia: (3) Moderate aortic stenosis: (4) GERD (gastroesophageal reflux disease): (5) Acute blood loss as cause of postoperative anemia: Plan This is a 77-year-old female who has a significant past medical history of HLD, GERD, chronic low back pain and moderate aortic valve stenosis who presents for elective lower back surgery by Dr. Nieto. Neurogenic claudication due to lumbar spinal stenosis Status post L4-L5 lumbar decompression fusion, POD #[address] Nieto EBL 250 mL, TAM drain in place Pain/wound management per orthopedic Activity and therapy as prescribed by Ortho Encourage incentive spirometry wean oxygen as able Acute blood loss anemia, as cause of post op anemia hgb 10.7, pre op 13.5 expected given EBL and TAM drain output asymptomatic CBC in AM Hyperlipidemia Diet controlled Chronic, stable Moderate aortic stenosis Chronic, stable. Remains euvolemic GERD As needed PPI, pepcid, tums Obesity BMI 36.6 Encourage diet lifestyle modifications as able DVT ppx: SCDS PCP: Sonido Franco MD Dispo: per primary Thank you for this consultation. We will follow the patient with you during their hospital stay. You can reach a member of the [facility] Hospitalist Team 05/04 via hospitalist role on tiger text. Admission and Anticipated Discharge Date Admission Date: May 18, 2023 Supervising Physician Co-Signing Physician Notes I have seen and examined the patient and have discussed the case with the provider above. I agree with the assessment and plan as stated. Pt is doing very well post op with expected pain in her back that is well managed and no further pain in her feet. Physical exam is as noted above. Meds/Labs reviewed. Plans for possible dc tomorrow per patient who is hopeful for this. Tolerating PO. Kenrick, Subjective Patient was seen and examined in room 384 bed 2 in follow-up after lumbar surgery. Had some nausea and vomiting yesterday that was attributed to anesthesia and has resolved this morning. Does have some incisional pain but no weakness or numbness of bilateral lower extremities. Urinating without issue. No F/C, headache, abdominal pain, dysuria, diarrhea or constipation. + flatus Review of Systems Review of Systems: At least ten systems reviewed and negative except as noted in the HPI. Physical Exam Physical Exam: Gen: WD/WN, NAD, sitting upright in bed, A&Ox3 HEENT: Normocephalic, atraumatic, conjunctivae moist, sclerae anicteric, mucous membranes moist Lung: Clear to Auscultation bilaterally, no wheezes/rales/rhonchi Heart: Regular rate, regular rhythm, no murmurs, rubs, or gallops Abdomen: Spinal dressing c/d/i. TAM drain visualized. Soft, NT, ND +BS x 4 Extremities: no edema Skin: Warm, no rash Results & Data Results & Data Vital Signs (Past 12 Hours) Vital Signs Temp Pulse Resp BP Pulse Ox O2 Del Method 05/20/23 15:44 36.7 C 82 18 129/66 97 Room Air 05/20/23 11:38 37 C 75 17 121/73 92 Room Air 05/20/23 07:58 37.2 C 73 18 109/65 94 Room Air Diagnostic Findings Lumbar Spine X-Ray 05/18/23 10:05 FL lumbar spine 2-3V CLINICAL HISTORY: L4-L5 DECOMPRESSION FUSION WITH INTERBODY COMPARISON STUDY: 09/08/2020 FLUOROSCOPY TIME: 26.9 seconds FLUOROSCOPY IMAGES: 2 EXPOSURE DOSE: 35.52 mGy FINDINGS: Posterior bilateral andrea and screw fusion hardware with discectomy at L4-L5. The hardware appears intact. There is a small looped metallic density structure noted adjacent to the intervertebral disc spacers seen on the second image. IMPRESSION: Fluoroscopic assistance of the above. ACT 112: Negative or not required by law. Electronically signed by: Brenton Lou M.D. 05/18/2023 1:47 PM
[2023-05-20] MEDS: DOCUSATE SODIUM/SENNA 50/8.6MG TAB PO SCH (21:01)
[2023-05-20] MEDS: ASPIRIN 81 MG ECTAB PO SCH (21:01)
[2023-05-21] MEDS: POLYETHYLENE (MIRALAX) 17 GM PACK PO SCH ×2 (01:05→11:08)
[2023-05-21 07:42] LABS: Hematocrit (blood only) 31.6 % (37.0-47.0); Hemoglobin 10.3 g/dl (12.0-16.0); Mean Corpuscular Hemoglobin 27.7 pg (25.0-34.0); Mean Corpuscular Hgb Conc 32.6 g/dL (32.0-36.0); Mean Corpuscular Volume 84.9 fL (80.0-100.0); Mean Platelet Volume 13.7 fL (9.4-12.4); Platelet Count 156 K/uL (130-400); RDW Coefficient of Variation 14.6 % (11.5-14.5); RDW Standard Deviation 45.1 fL (36.4-46.3); Red Blood Count 3.72 M/uL (4.20-5.40); White Blood Count 10.98 K/ul (4.8-10.8)
[2023-05-21 07:53] LABS: BUN Creatinine Ratio 46.8 (10-20); Calcium 8.6 mg/dl (8.6-10.3); Creatinine Clr Calc Pharmacy 98.6 ml/min; Est GFR (African American) 111.2 ml/min; Est GFR (Non-African American) 95.9 ml/min; Potassium 3.9 mmol/L (3.5-5.1)
[2023-05-21] MEDS: dexAMETHasone 6 MG in SYRINGE 0 ML IV SCH (08:18)
[2023-05-21] MEDS: oxyCODONE HCL IR 5 MG TAB (IMMEDIATE RELEASE) PO PRN (08:22)
--- NOTE | 2023-05-21 10:07 | Discharge Summary ---
Date of Service May 21, 2023 Admission HPI Per Admitting Provider This is a 77-year-old female presents with chronic persistent back and leg pain Extensive course of nonoperative care she is here for surgical invention. Principal Diagnosis Lumbar spinal stenosis with neurogenic claudication Discharge Data Allergies Allergy/AdvReac Type Severity Reaction Status Date / Time Penicillins Allergy Intermediate HIVES Verified 05/18/23 08:44 tramadol Allergy Unknown DIZZY Verified 05/18/23 08:44 Consultations 05/18/23 13:35 Consult Hospitalist Routine Procedures Performed Operation Date: 05/18/23 10:05 Actual Procedures p L4-L5 Decompression and Fusion, Spinal Cord Monitoring(Not Applicable) - Join Nieto DO Ordered Studies 05/18/23 10:05 FL lumbar spine 2-3V Routine Hospital Course (1) Neurogenic claudication due to lumbar spinal stenosis: Patient with lumbar depression and fusion tolerated as well as taken to orthopedic. A postop day Meenu is up and ambulating progressed postop day #2 on postop day #3 TAM drain had decreased ability. Extra strength testing. Pain well controlled. Subsequently discharged home. Discharge orders instructions by the chart for further review. Total Time Total Time Spent Total Time Spent (In Minutes): 20 minutes Discharge Plan Discharge Items Patient Disposition: Home - Self-Care Reason For Visit: Spinal Stenosis, Lumbar Region with Neurogenic Cla Discharge Diagnosis: Lumbar spinal stenosis with neurogenic claudication Activity: As commented below Non-emergency contact: Primary Care Provider Call non-emergency contact if: you have any medication questions Follow-up/Referrals: Piper Winkler MD [Primary Care Provider] - Diet: Regular Addtl Attending Provider Instructions: ACTIVITY RECOMMENDATIONS: SELF CARE INSTRUCTIONS AFTER THORACIC/LUMBAR FUSIONS 1. You may walk to your tolerance. It is good exercise for your legs and back. Expect some back and intermittent leg aches and pains. 2. You may perform "counter-top" level activities (make a sandwich, michelle with a project, etc.). 3. No bending or lifting of more than 10 pounds or back twisting of any nature (roll like a log when turning in bed). 4. You may ride in a car for 20-30 minutes at a time. No driving until after your first visit with your doctor. 5. Frequent changes of position and restricting sitting to 30 minutes at a time will help limit the amount of back spasms and stiffness you may experience. 6. You may discontinue the use of ambulatory aids (cane, crutches, etc.) once your strength and confidence allow. 7. You may [employer] the shower and let water strike your incision when you arrive home at least once daily. Do not take a tub bath, sit in a hot tub or go into a swimming pool until after your first recheck in the office. SPECIAL CARE INSTRUCTIONS: VERY IMPORTANT TO READ AND REVIEW A. Your surgical incision has been closed with a cosmetic suture under the skin that will dissolve in about 6 weeks. In 14 days, you can use a pair of clean scissors and cut the suture that is left outside of the skin at the ends of your incision. 1. The small skin tapes can be removed 7 days after surgery if they have not fallen off by that point. 2. You may keep the wound open to air as much as possible to promote healing after post-op day number 5 unless told otherwise by your doctor. 3. If you think the wound looks like it is becoming infected (redness or worsening drainage) and/or you are experiencing fever, chill or worsening back pain and muscle spasms, contact the office so that we may evaluate you as soon as possible. B. Complications are uncommon, but please contact us if you have any signs or symptoms of: 1. wound infection (fever higher than 102.5 degrees F, redness, separation of wound, drainage, or increasing pain from the incision) 2. blood clots in legs (pain, swelling, redness and warmth in legs) 3. urinary tract infection (fever higher than 102.5 degrees F, burning upon urination or increased frequency of urination) 4. nerve problems (inability to walk on your toes or heels, numbness, loss of bowel or bladder control) 5. any other symptoms that concern you C. Please call the office at if you have any concerns or questions about your operation or recovery. D. No smoking! Smoking drastically decreases the chance of a solid fusion. E. Do not take any anti-inflammatory medications (Indocin, Advil, Motrin, Aspirin, Naprosyn, etc.) as these may inhibit the chance of a solid fusion. Tylenol is okay to take for pain. MANAGING PAIN AFTER SPINAL SURGERY 1. Narcotic medication is intended for short-term use and will be provided for surgical pain. Surgical pain usually lasts for a period of 4-6 weeks. Narcotic medication includes Percocet, Vicodin, Darvocet, Tylenol #3 or Lortab. 2. Longer-term pain is more appropriately treated with non-narcotic medication such as Tylenol ES. 3. Muscle spasm is not appropriately treated with narcotics. Muscle relaxers such as Soma, Flexeril or Skelaxin can be used along with Tylenol ES. 4. Remember that we all live with some "aches and pains". This is not unusual or uncommon after an injury or as we get older. a. Back pain is expected and may include muscle spasms for 4 to 6 weeks after surgery. The pain should gradually improve. If the pain worsens for no apparent reason, please contact the office. b. Intermittent leg pain may also be experienced and should not be concerned about unless it worsens for no apparent reason. If so, please contact the office. 5. We will provide appropriate medication within the normal guidelines of their prescribed use. We will also be very cautious and aware of potential abuse and extended duration of patients' medication needs. a. Pain medications are for your comfort and to assist with sleep and rest so that the tissue can heal. They are not provided in order to return to normal activity and should not be used through the day. To do so or worsening pain at night can result from ongoing tissue damage and development of tolerance to the prescribed medicine. 6. Please allow 2-3 days to process refills. Prescriptions will not be mailed but must be picked up at the office. FOLLOW UP VISIT: Keep your scheduled follow-up appointment. Any questions, please call the office at . Pending Studies at Discharge: No Stand-Alone Forms: [email or web address], Smoking Cessation Medications and DC Order Prescriptions: New oxycodone 5 mg tablet 5 mg PO Q6H PRN (Reason: pain) Qty: 30 0RF Continued acetaminophen 325 mg Tablet 650 mg PO Q6H PRN (Reason: pain) Qty: 60 0RF aspirin 81 mg Tablet,Delayed Release (Dr/Ec) 81 mg PO HS omeprazole 20 mg Tablet,Delayed Release (Dr/Ec) 20 mg PO DAILY PRN (Reason: Acid Reflux) Discontinued naproxen sodium 220 mg Capsule 220 mg PO HS Discharge Orders: Discharge Order (Routine); Ordered 05/21/23 Ordered By: Joni Nieto Admission Data Admit Date/Time: 05/18/23 12:11 Attending Provider: Joni Nieto Admit Provider: Joni Nieto Primary Care Provider: Piper Winkler Other Providers: Merlyn Choudhary ; Monique King
[2023-05-21] MEDS: CALCIUM CARBONATE 500 MG CHEWABLE TAB PO PRN (11:05)
--- NOTE | 2023-05-21 13:11 | Hospitalist Progress Note ---
Date of Service May 21, 2023 Assessment & Plan (1) Neurogenic claudication due to lumbar spinal stenosis: (2) Dyslipidemia: (3) Moderate aortic stenosis: (4) GERD (gastroesophageal reflux disease): (5) Acute blood loss as cause of postoperative anemia: Plan This is a 77-year-old female who has a significant past medical history of HLD, GERD, chronic low back pain and moderate aortic valve stenosis who presents for elective lower back surgery by Dr. Nieto. Neurogenic claudication due to lumbar spinal stenosis Status post L4-L5 lumbar decompression fusion, POD #[address] Nieto EBL 250 mL, TAM drain in place Pain/wound management per orthopedic Activity and therapy as prescribed by Ortho Encourage incentive spirometry wean oxygen as able Acute blood loss anemia, as cause of post op anemia Hemoglobin stable with hgb 10.3 (from hgb 10.7 yesterday), pre op 13.5 CBC in AM Hyperlipidemia Diet controlled Chronic, stable Moderate aortic stenosis Chronic, stable. Remains euvolemic GERD As needed PPI, pepcid, tums Obesity BMI 36.6 Encourage diet lifestyle modifications as able DVT ppx: SCDS PCP: Sonido Franco MD Dispo: per primary Thank you for this consultation. We will follow the patient with you during their hospital stay. You can reach a member of the [facility] Hospitalist Team 05/04 via hospitalist role on tiger text. Admission and Anticipated Discharge Date Admission Date: May 18, 2023 Supervising Physician Co-Signing Physician Notes I was unable to see the patient prior to leaving. Agree with above. Subjective Patient was seen and examined in room 384 bed 2 in follow-up after lumbar surgery. Nausea and vomiting patient was experiencing yesterday has resolved. Continuing to have some incisional pain but no weakness or numbness of bilateral lower extremities. Ambulating in room without issue. Urinating without issue. No F/C, headache, abdominal pain, dysuria, diarrhea. + flatus but no postop bowel movement Review of Systems Review of Systems: At least ten systems reviewed and negative except as noted in the HPI. Physical Exam Physical Exam: Gen: WD/WN, NAD, sitting upright in bed, A&Ox3 HEENT: Normocephalic, atraumatic, conjunctivae moist, sclerae anicteric, mucous membranes moist Lung: Clear to Auscultation bilaterally, no wheezes/rales/rhonchi Heart: Regular rate, regular rhythm, no murmurs, rubs, or gallops Abdomen: Spinal dressing c/d/i. TAM drain visualized. Soft, NT, ND +BS x 4 Extremities: no edema Skin: Warm, no rash Results & Data Results & Data Vital Signs (Past 12 Hours) Vital Signs Temp Pulse Resp BP Pulse Ox O2 Del Method 05/21/23 07:15 36.6 C 67 16 128/70 92 Room Air Laboratory Results Short CBC 05/21/23 Range/Units 07:00 WBC 10.98 H (4.8-10.8) K/ul Hgb 10.3 L (12.0-16.0) g/dl Hct 31.6 L (37.0-47.0) % Plt Count 156 (130-400) K/uL BMP 05/21/23 07:00 Sodium 140 Potassium 3.9 Chloride 106 Carbon Dioxide 30 BUN 22 Creatinine 0.47 L Glucose 88 Calcium 8.6 Diagnostic Findings Lumbar Spine X-Ray 05/18/23 10:05 FL lumbar spine 2-3V CLINICAL HISTORY: L4-L5 DECOMPRESSION FUSION WITH INTERBODY COMPARISON STUDY: 09/08/2020 FLUOROSCOPY TIME: 26.9 seconds FLUOROSCOPY IMAGES: 2 EXPOSURE DOSE: 35.52 mGy FINDINGS: Posterior bilateral andrea and screw fusion hardware with discectomy at L4-L5. The hardware appears intact. There is a small looped metallic density structure noted adjacent to the intervertebral disc spacers seen on the second image. IMPRESSION: Fluoroscopic assistance of the above. ACT 112: Negative or not required by law. Electronically signed by: Brenton Lou M.D. 05/18/2023 1:47 PM
== END 2023-05-21 12:47 | disposition home or self-care (01) | DRG 454 ==
LOC: ASU 08:20 → 3N 12:11